=== PATIENT | male | born 1945 | race Caucasian/White ===

== ENCOUNTER → 2017-11-14 09:47 | Outpatient (CLI) | payer MEDICARE, OTHER, SELFPAY ==
[2017-11-14 11:46] LABS: PSA,Total- Diagnostic 1.43 ng/mL (0.0-4.0)
== END ==
LOC: OLS.ABSOLU 09:51 → LAB 10:01
PROVIDERS: Family Provider Family Medicine; PCP Family Medicine; Visit Provider Nurse Practitioner Adult Health
DX: N40.1 Benign prostatic hyperplasia with lower urinary tract symptoms (principal)
CPT/HCPCS: 36415; 84153

== ENCOUNTER → 2018-01-09 08:37 | Outpatient (CLI) | payer MEDICARE, OTHER, SELFPAY ==
[2018-01-09 12:19] LABS: Absolute Lymphocyte Count 2.22 X10^3/ul (0.83-4.51); Absolute Neutrophil Count 4.2 X10^3/uL (2.0-7.7); Basophil# 0.03 X10^3/uL; Basophil% 0.4 % (0-1); Eosinophil# 0.38 X10^3/uL; Hematocrit 45.7 % (40-54); Hemoglobin 15.3 g/dl (13.0-16.5); Lymphocyte # 2.22 X10^3/ul (4.0); Lymphocyte % 29.4 % (19-41); Mean Corp Hgb Conc 33.5 g/gl (32-36); Mean Corpuscular Hgb 30.9 pg (27.0-32.0); Mean Corpuscular Volume 92.3 fL (80-94); Mean Platelet Vol. 10.6 fl (6.2-12.0); Monocyte# 0.71 X10^3/uL; Monocyte% 9.4 % (0-10); Neutrophil # 4.21 X10^3/uL (2.7-7.7); Neutrophil % 55.7 % (47-70); Platelet Count 214 K/mm3 (150-450); RBC Distribution Width CV 13.5 % (11.6-14.6); RBC Distribution Width SD 44.8 fl (35.1-43.9); Red Blood Count 4.95 M/mm3 (4.6-6.2); White Blood Count 7.6 K/mm3 (4.4-11.0)
[2018-01-09 12:21] LABS: POSITIVE COUNT NO; POSITIVE DIFFERENTIAL NO; POSITIVE MORPHOLOGY NO
[2018-01-09 12:36] LABS: Microalbumin,Random Urine 25.1 mg/L (NO RANGE EST.)
[2018-01-09 12:41] LABS: ALB/GLOB Ratio 1.1 RATIO (0.9-2.4); AST(SGOT) 22 U/L (15-37); Alanine Aminotransfer ALT/SGPT 41 U/L (16-61); Albumin, Serum 3.8 g/dL (3.2-5.0); Alkaline Phosphatase 67 U/L (45-117); Anion Gap 6 (5-15); BUN 19 mg/dL (7-18); BUN/Creat Ratio 18.6 RATIO (10-20); Calcium,Total 9.5 mg/dL (8.5-10.1); Chloride 104 mmol/L (98-107); Cholesterol 140 mg/dL (200); Creatinine, Serum 1.02 mg/dL (0.70-1.30); EST Glomerular Filtration Rate 77 mL/min (>60); Est Glom Filt Rate - Afr Amer 93 mL/min (>60); Globulin 3.5 g/dL (2.2-4.2); Glucose 134 mg/dL (74-106); High Density Lipoprotein 32 mg/dL; Potassium 4.1 mmol/L (3.5-5.1); Protein, Total 7.3 g/dL (6.4-8.2); Sodium Level 140 mmol/L (136-145); Triglycerides 184 mg/dL; Very Low Density Lipoprotein 37 mg/dL (5-40)
== END ==
PROVIDERS: Family Provider Family Medicine; PCP Family Medicine; Visit Provider Family Medicine
DX: E11.9 Type 2 diabetes mellitus without complications (principal); E78.5 Hyperlipidemia, unspecified; I10 Essential (primary) hypertension
CPT/HCPCS: 36415; 80053; 80061; 82043; 82570; 84443; 85025

== ENCOUNTER → 2018-11-21 10:18 | Outpatient (CLI) | payer MEDICARE, OTHER, SELFPAY ==
[2015-10-10 11:11] VITALS: BMI 27.8
[2018-11-21 11:49] LABS: PSA,Total - Annual Screen 1.35 ng/mL (0.00-4.00)
== END ==
PROVIDERS: Family Provider Family Medicine; PCP Family Medicine; Referring Provider Nurse Practitioner Adult Health; Visit Provider Nurse Practitioner Adult Health
DX: Z12.5 Encounter for screening for malignant neoplasm of prostate (principal)
CPT/HCPCS: 36415; 84153; G0103

== ENCOUNTER → 2019-05-01 10:22 | Outpatient (CLI) | payer MEDICARE, OTHER, SELFPAY ==
[2015-10-10 11:11] VITALS: BMI 27.8
[2019-05-01 12:34] LABS: Absolute Lymphocyte Count 1.83 X10^3/uL (0.83-4.51); Absolute Neutrophil Count 4.1 X10^3/uL (2.0-7.7); Basophil# 0.04 X10^3/uL; Basophil% 0.6 % (0-1); Eosinophil# 0.23 X10^3/uL; Eosinophils% 3.4 % (0-5); Hematocrit 44.2 % (40-54); Lymphocyte # 1.83 X10^3/ul (4.0); Lymphocyte % 27.3 % (19-41); Mean Corp Hgb Conc 33.9 g/dL (32-36); Mean Corpuscular Hgb 30.9 pg (27.0-32.0); Mean Corpuscular Volume 91.1 fL (80-94); Mean Platelet Vol. 10.4 fl (6.2-12.0); Monocyte# 0.49 X10^3/uL; Monocyte% 7.3 % (0-10); NRBC Flagged by Analyzer 0 % (0-5); Neutrophil # 4.11 X10^3/uL (2.7-7.7); Neutrophil % 61.3 % (47-70); Platelet Count 200 K/mm3 (150-450); RBC Distribution Width CV 13.1 % (11.6-14.6); RBC Distribution Width SD 43.7 fl (35.1-43.9); Red Blood Count 4.85 M/mm3 (4.6-6.2); White Blood Count 6.7 K/mm3 (4.4-11.0)
[2019-05-01 12:47] LABS: Vitamin B12 633 pg/mL (211-911); Vitamin D,25 Hydroxy 37.4 ng/mL (29.95-100.01)
[2019-05-01 12:51] LABS: ALB/GLOB Ratio 0.9 RATIO (0.9-2.4); AST(SGOT) 18 U/L (15-37); Alanine Aminotransfer ALT/SGPT 29 U/L (16-61); Albumin, Serum 3.5 g/dL (3.2-5.0); Alkaline Phosphatase 71 U/L (45-117); Anion Gap 9 (5-15); BUN 13 mg/dL (7-18); BUN/Creat Ratio 13.4 RATIO (10-20); Calcium,Total 9.4 mg/dL (8.5-10.1); Chloride 105 mmol/L (98-107); Creatinine, Serum 0.97 mg/dL (0.70-1.30); EST Glomerular Filtration Rate 81 mL/min (>60); Est Glom Filt Rate - Afr Amer 98 mL/min (>60); Globulin 3.7 g/dL (2.2-4.2); Glucose 158 mg/dL (74-106); Potassium 3.7 mmol/L (3.5-5.1); Protein, Total 7.2 g/dL (6.4-8.2); Sodium Level 141 mmol/L (136-145); Thyroid Stim Hormone (TSH) 1.01 uIU/mL (0.358-3.74)
== END ==
PROVIDERS: Family Provider Family Medicine; PCP Family Medicine; Visit Provider Family Medicine
DX: E11.9 Type 2 diabetes mellitus without complications (principal); E78.5 Hyperlipidemia, unspecified; E55.9 Vitamin D deficiency, unspecified; R41.81 Age-related cognitive decline; R53.83 Other fatigue
CPT/HCPCS: 36415; 80053; 82306; 82607; 84443; 85025

== ENCOUNTER → 2019-12-10 09:53 | Outpatient (CLI) | payer MEDICARE, OTHER, SELFPAY ==
[2015-10-10 11:11] VITALS: BMI 27.8
[2019-12-10 12:16] LABS: PSA,Total - Annual Screen 1.55 ng/mL (0.00-4.00)
== END ==
PROVIDERS: PCP Family Medicine; Referring Provider Nurse Practitioner Adult Health; Visit Provider Nurse Practitioner Adult Health
DX: Z12.5 Encounter for screening for malignant neoplasm of prostate (principal)
CPT/HCPCS: 36415; 84153; G0103

== ENCOUNTER → 2020-10-14 09:04 | Outpatient (CLI) | payer MEDICARE, OTHER, SELFPAY ==
[2015-10-10 11:11] VITALS: BMI 27.8
[2020-10-14 12:51] LABS: Absolute Lymphocyte Count 2.02 X10^3/uL (0.83-4.51); Basophil# 0.04 X10^3/uL; Basophil% 0.6 % (0-1); Eosinophil# 0.41 X10^3/uL; Eosinophils% 5.7 % (0-5); Hematocrit 47.2 % (40-54); Hemoglobin 15.7 g/dL (13.0-16.5); Lymphocyte # 2.02 X10^3/ul (4.0); Lymphocyte % 28.1 % (19-41); Mean Corp Hgb Conc 33.3 g/dL (32-36); Mean Corpuscular Hgb 30.5 pg (27.0-32.0); Mean Corpuscular Volume 91.7 fL (80-94); Mean Platelet Vol. 10.8 fl (6.2-12.0); Monocyte# 0.66 X10^3/uL; Monocyte% 9.2 % (0-10); NRBC Flagged by Analyzer 0 % (0-5); Neutrophil # 4.04 X10^3/uL (2.7-7.7); Neutrophil % 56.1 % (47-70); Platelet Count 228 K/mm3 (150-450); RBC Distribution Width CV 12.8 % (11.6-14.6); Red Blood Count 5.15 M/mm3 (4.6-6.2); White Blood Count 7.2 K/mm3 (4.4-11.0)
[2020-10-14 13:08] LABS: Vitamin D,25 Hydroxy 38.7 ng/mL
[2020-10-14 13:21] LABS: ALB/GLOB Ratio 0.9 RATIO (0.9-2.4); AST(SGOT) 17 U/L (15-37); Alanine Aminotransfer ALT/SGPT 31 U/L (16-61); Albumin, Serum 3.6 g/dL (3.2-5.0); Alkaline Phosphatase 76 U/L (45-117); Anion Gap 8 (5-15); BUN 18 mg/dL (7-18); BUN/Creat Ratio 16.8 RATIO (10-20); Chloride 100 mmol/L (98-107); Cholesterol 146 mg/dL (200); Creatinine, Serum 1.07 mg/dL (0.70-1.30); EST Glomerular Filtration Rate 72 mL/min (>60); Est Glom Filt Rate - Afr Amer 87 mL/min (>60); Globulin 3.9 g/dL (2.2-4.2); Glucose 177 mg/dL (74-106); High Density Lipoprotein 35 mg/dL; Protein, Total 7.5 g/dL (6.4-8.2); Sodium Level 137 mmol/L (136-145); Thyroid Stim Hormone (TSH) 1.71 uIU/mL (0.358-3.74); Triglycerides 216 mg/dL; Very Low Density Lipoprotein 43 mg/dL (5-40)
== END ==
PROVIDERS: PCP Family Medicine; Visit Provider Family Medicine
DX: E11.9 Type 2 diabetes mellitus without complications (principal); I10 Essential (primary) hypertension; E78.5 Hyperlipidemia, unspecified; E55.9 Vitamin D deficiency, unspecified
CPT/HCPCS: 36415; 80053; 80061; 82306; 84443; 85025

== ENCOUNTER → 2020-12-18 13:25 | Outpatient (CLI) | payer MEDICARE, OTHER, SELFPAY ==
[2015-10-10 11:11] VITALS: BMI 27.8
== END ==
LOC: LABSPEC 13:27 → LAB 12-19 05:53
PROVIDERS: PCP Family Medicine; Visit Provider Nurse Practitioner Adult Health
DX: Z12.5 Encounter for screening for malignant neoplasm of prostate (principal)
CPT/HCPCS: 36415; 84153; G0103

== ENCOUNTER → 2021-09-07 12:15 | Outpatient (CLI) | payer MEDICARE, OTHER, SELFPAY ==
--- NOTE | 2021-09-07 12:17 | RAD_ITS ---
STUDY: X-RAY - ORBITS REASON FOR EXAM: Male, 75 years old. History of metal shavings in eyes TECHNIQUE: 2 view(s) of the orbits were obtained. COMPARISON: None. FINDINGS: Normal bilateral orbits without a metallic orbital foreign body. Normal visualized facial bones. Normal paranasal sinuses. The soft tissue structures are unremarkable. RAD/Orbits for Foreign Body IMPRESSION: No demonstrated metallic orbital foreign body. The patient is cleared for an MRI examination. Electronically Signed: Jose Ramon Bello MD at 14:48 EST , Service support ,
== END ==
PROVIDERS: PCP Family Medicine; Referring Provider Psychiatry & Neurology Neurology; Visit Provider Psychiatry & Neurology Neurology
DX: S00.259A Superficial foreign body of unspecified eyelid and periocular area, initial encounter (principal)
CPT/HCPCS: 70030

== ENCOUNTER → 2021-09-10 06:29 | Outpatient (CLI) | payer MEDICARE, OTHER, SELFPAY ==
--- NOTE | 2021-09-10 06:31 | MRI_ITS ---
HISTORY: [facility]CI, Parkinson Disease. TECHNIQUE: Multiplanar and multisequence MR images of the brain were obtained without and with IV gadolinium. IV Contrast dosage and agent: 19 mL Dotarem. # of images incl. paperwork: 351. COMPARISON: None. FINDINGS: BRAIN PARENCHYMA: Increased T2 FLAIR signal in the periventricular white matter. No abnormal focus of restricted diffusion. No enhancing lesion in the brain parenchyma. INTRACRANIAL HEMORRHAGE: No acute intracranial hemorrhage. CSF SPACES: Generalized volume loss. No midline shift or other significant mass effect. No extra-axial fluid collection. VESSELS: Major intracranial flow voids maintained. ORBITS: Symmetric in appearance. PARANASAL SINUSES: 1.4 x 3.2 cm heterogeneous isointense oval mass in the left nasal cavity involving the middle turbinate with avid and heterogeneous enhancement. Large and heterogeneous air-fluid levels in the left frontal sinus and ethmoid air cells. Mucosal thickening in the left nasal cavity. Mucous retention cyst in the right frontal sinus. Fluid in the right ethmoid air cells. MRI/Brain W/WO Contrast IMPRESSION: 3.2 cm enhancing mass in the left nasal cavity, neoplasm versus complex polyp. Frontoethmoid sinusitis. Mild chronic involutional and white matter changes. at 0936 Reported and signed by: Juliana Fraser MD Electronically Signed: Juliana Fraser MD at 9:35 EST Tel , Service support ,
[2021-09-10 07:10] LABS: CREATININE FINGERSTICK 0.8 mg/dL (0.70-1.30); EGFR FINGERSTICK > 60.0000 mL/min (>60)
[2021-09-10 08:16] LABS: Vitamin B12 540 pg/mL (211-911)
[2021-09-16 17:07] LABS: Free Kappa Light Chains 19.7 mg/L (3.3-19.4); Free Lambda Light Chains 19.7 mg/L (5.7-26.3)
[2021-09-16 22:33] LABS: Vitamin B1, Thiamine 172.7 nmol/L (66.5-200.0)
== END ==
PROVIDERS: PCP Family Medicine; Referring Provider Psychiatry & Neurology Neurology; Visit Provider Psychiatry & Neurology Neurology
DX: G62.9 Polyneuropathy, unspecified (principal); G31.84 Mild cognitive impairment of uncertain or unknown etiology; G20 Parkinson's disease
CPT/HCPCS: 36415; 70553; 82607; 82746; 83883; 84425; A9575

== ENCOUNTER → 2022-02-12 | Outpatient (CLI) | payer MEDICARE, OTHER, SELFPAY ==
--- NOTE | 2022-02-12 09:09 | EKG12_ITS ---
Test Reason : PRE OP Blood Pressure : / mmHG Vent. Rate : 063 BPM Atrial Rate : 063 BPM P-R Int : 214 ms QRS Dur : 086 ms QT Int : 422 ms P-R-T Axes : 074 -34 -14 degrees QTc Int : 431 ms Sinus rhythm with sinus arrhythmia with 1st degree A-V block with occasional Premature ventricular co mplexes Left axis deviation Nonspecific T wave abnormality Abnormal ECG Confirmed by CECILIA RICHTER, JOSE ([id number]), editorial specialist MEÑO TONG ([id number]) on 02/15/2022 9:59:37 AM Referred By: GER Confirmed By:BRIANA BROOKS MD
== END | disposition home or self-care (01) ==
LOC: PSN 09:06
PROVIDERS: PCP Family Medicine; Visit Provider Otolaryngology
DX: Z01.810 Encounter for preprocedural cardiovascular examination (principal); I49.8 Other specified cardiac arrhythmias; I44.0 Atrioventricular block, first degree; R94.31 Abnormal electrocardiogram [ECG] [EKG]
CPT/HCPCS: 93005

== ENCOUNTER → 2022-02-15 | Outpatient (CLI) | payer MEDICARE, OTHER, SELFPAY ==
[2022-02-15 09:44] LABS: Anion Gap 7 (5-15); BUN 17 mg/dL (7-18); BUN/Creat Ratio 15.3 RATIO (10-20); Calcium,Total 9.6 mg/dL (8.5-10.1); Chloride 102 mmol/L (98-107); Creatinine, Serum 1.11 mg/dL (0.70-1.30); EST Glomerular Filtration Rate 69 mL/min (>60); Est Glom Filt Rate - Afr Amer 83 mL/min (>60); Glucose 226 mg/dL (74-106); Potassium 3.7 mmol/L (3.5-5.1); Sodium Level 137 mmol/L (136-145)
== END | disposition home or self-care (01) ==
LOC: LAB 08:37
PROVIDERS: PCP Family Medicine; Referring Provider Otolaryngology; Visit Provider Otolaryngology
DX: J33.0 Polyp of nasal cavity (principal)
CPT/HCPCS: 36415; 80048

== ENCOUNTER → 2022-06-08 | Outpatient (CLI) | payer MEDICARE, OTHER, SELFPAY ==
[2022-06-08 11:32] LABS: Hematocrit 45.4 % (40-54); Hemoglobin 14.9 g/dL (13.0-16.5); Mean Corp Hgb Conc 32.8 g/dL (32-36); Mean Corpuscular Volume 91.3 fL (80-94); Platelet Count 222 K/mm3 (150-450); RBC Distribution Width CV 13.9 % (11.6-14.6); RBC Distribution Width SD 46.4 fl (35.1-43.9); Red Blood Count 4.97 M/mm3 (4.6-6.2); White Blood Count 7.6 K/mm3 (4.4-11.0)
[2022-06-08 12:08] LABS: ALB/GLOB Ratio 0.8 RATIO (0.9-2.4); AST(SGOT) 18 U/L (15-37); Alanine Aminotransfer ALT/SGPT 27 U/L (16-61); Albumin, Serum 3.6 g/dL (3.2-5.0); Alkaline Phosphatase 86 U/L (45-117); Anion Gap 9 (5-15); BUN 18 mg/dL (7-18); BUN/Creat Ratio 19.6 RATIO (10-20); Calcium,Total 9.9 mg/dL (8.5-10.1); Chloride 104 mmol/L (98-107); Creatinine, Serum 0.92 mg/dL (0.70-1.30); EST Glomerular Filtration Rate 85 mL/min (>60); Est Glom Filt Rate - Afr Amer 103 mL/min (>60); Globulin 4.4 g/dL (2.2-4.2); Glucose 186 mg/dL (74-106); Potassium 3.9 mmol/L (3.5-5.1); Sodium Level 139 mmol/L (136-145); Thyroid Stim Hormone (TSH) 1.45 uIU/mL (0.358-3.74)
[2022-06-10 18:07] LABS: Albumin 3.7 g/dL (2.9-4.4); Alpha-1-Globulins 0.3 g/dL (0.0-0.4); Gamma Globulin 1.1 g/dL (0.4-1.8); Immunoglobulin A 304 mg/dL (61-437); Immunoglobulin G 1081 mg/dL (603-1613); Immunoglobulin M 27 mg/dL (15-143); PROEL- TOTAL PROTEIN 7.4 g/dL (6.0-8.5)
== END | disposition home or self-care (01) ==
LOC: LAB 10:40
PROVIDERS: PCP Family Medicine; Referring Provider Psychiatry & Neurology Neurology; Visit Provider Psychiatry & Neurology Neurology
DX: G20 Parkinson's disease (principal); G62.9 Polyneuropathy, unspecified; E78.5 Hyperlipidemia, unspecified
CPT/HCPCS: 36415; 80053; 82784; 84165; 84443; 85027; 86334; 86335

== ENCOUNTER → 2022-06-29 | Outpatient (CLI) | payer MEDICARE, OTHER, SELFPAY | END | disposition home or self-care (01) | LOC: LAB 10:45 | PROVIDERS: PCP Family Medicine; Visit Provider Registered Nurse | DX: Z12.5 Encounter for screening for malignant neoplasm of prostate (principal) | CPT/HCPCS: 36415; 84153; G0103 ==

== ENCOUNTER 2023-01-12 15:00 | Outpatient (RCR) | payer MEDICARE, OTHER, SELFPAY ==
--- NOTE | 2022-12-14 13:53 | HP.PTEVAL ---
Patient's Visit Information KAYLEN BAJWA is a 77 year old M referred to Physical Therapy by Dr. Ham Arellano MD with a diagnosis of PD. Date of Evaluation: 12/14/22 Physical Therapist: YANETH Lerner - Visit Plan Frequency: 2x /Week Duration: 2 Months Plan: 2X/ week for 4-8 weeks for dual tasking, functional balance with and without head movements, postural exercises with HEP - Subjective Pt was diagnosed with PD almost a year ago. He is struggling with short foot step and shuffling/not picking up his feet. He is having a little bit of memory trouble. He still works... 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 He is sleeping 12 hours with no problems. He has had falls...he tends to fall BW. He has to back up against the bed to get dressed. He has fallen 4X in the last year and had no idea he was going down. He makes sure that there is something landing on. He started on some new pills a week ago and he is feeling better...they make him feel like there is nothing wrong with him. Dr said to go to PT due to his walking and falling over backwards. He still drives....he has to be careful cause he wants to look around. His drives most of the time. Steps: he has a railing and to the basement he has a full flight of stairs. He used to get dizzy but has some pills for that and has not had it since then. He has trouble getting out of low cars. - Objective Gait: Shuffles. Takes shorter strides unless reminded to take bigger steps. Posture: slight trunk flexion. Stairs: up and down recip with handrail. LE MMT. R hip flex 12.7 and L 12.6. R knee ext 24 and L 26.3. R knee flex 11.4 and L 9.7. Standing heel and toe raises..he is able to do so. [place] arm and leg in standing X 2 and then had to re group twice but was able to do X 10 on each side but too a lot of concentration. FGA: 21. TU.60. Sitting and turning head R and L X 7 times in each direction and he gets a little dizzy but recovers quickly. Sit to stand: He is able to get up without using his UE's. - Balance/Special Test Scores Functional Gait Assessment Score: 21 % Disability: 30.0000 Lower Extremity Functional Score: 32 - Goals Goal 1:: I HEP Goal Time Frame: 6-8 Weeks Goal 2:: Increase FGA score and decrease fall risk (score at time of eval 21) Goal Time Frame: 6-8 Weeks Goal 3:: Be able to walk with head turns 160 feet X 2 without any dizziness Goal Time Frame: 6-8 Weeks Goal 4:: Be able to do X 20 FW opp arm and leg in standing and BW without messing up or LOB Goal Time Frame: 6-8 Weeks Goal 5:: Increase stride length with gait and not shuffle on the way back to the treatment rooms Goal Time Frame: 6-8 Weeks - Rehabilitation Potential Rehabilitation Potential: Good - Anticipated Interventions Patient/Client Instruction: Educate patient on: Condition, Plan of Care For the Purpose of:: To improve muscle performance and motor function, To improve ability to perform ADL's, To increase tolerance to activity/condition/position, To improve performance and independence with ADL's, To decrease level of supervision to perform tasks, To improve ability of physical actions for home/community/work/leisure, To improve gait and locomotor functions, To improve health of tissue, To increase flexibility/ROM, To improve endurance, To improve balance, To improve safety with gait Therapeutic Exercise to Include: Strength training, Endurance training, Balance training, Body mechanics, Postural training, Gait and locomotor training For the Purpose of:: To decrease pain, To improve nutrient delivery to tissue, To improve muscle performance and motor function, To improve ability to perform ADL's, To increase tolerance to activity/condition/position, To improve performance and independence with ADL's, To decrease level of supervision to perform tasks, To improve ability of physical actions for home/community/work/leisure, To improve gait and locomotor functions, To improve health of tissue, To increase flexibility/ROM, To improve endurance, To improve balance, To improve safety with gait Functional Training to Include: Gait training For the Purpose of:: To improve gait and locomotor functions, To improve safety with gait Manual Therapy Techniques to Include: Passive ROM For the Purpose of:: To increase ROM, To improve nutrient delivery to tissue, To improve health of tissue, To decrease soft tissue restriction, To increase flexibility/ROM Thank you for the opportunity to evaluate your patient. For Medicare and Medicare HMO plans, please review the plan of care and approve it. It will need to be FAXED BACK to us at [phone] for Medicare purposes. For Medicare only, by signing this I certify the plan of care. Please let me know if there are questions or concerns regarding this plan of care. Physician Signature: Date:
--- NOTE | 2023-01-12 15:27 | HP.PTDCSUM ---
It has been my pleasure to treat KAYLEN BAJWA referred by Dr. Ham Arellano MD, with the diagnosis of PD for a total of 8 visit(s). Discharge Date: 01/12/23 Please see the following information for a summary of their discharge status. Subjective: Pt thinks that he is doing much better than when he came here. He is doing all his exercises at home and feels good about it. He will continue to walk on the machines at home. He is now hardly scuffing his feet. He is holding his shoulders up much straighter when he walks. % Improvement: 95 Objective/Function: FGA 23. walk with horizontal head turns: no LOB or veering. FW opp arm and leg X 20: no messing up with good balance Goal 1:: I HEP Goal Progress: Goal Met Goal 2:: Increase FGA score and decrease fall risk (score at time of eval 21) Goal Progress: Goal Met Goal 3:: Be able to walk with head turns 160 feet X 2 without any dizziness Goal Progress: Goal Met Goal 4:: Be able to do X 20 FW opp arm and leg in standing and BW without messing up or LOB Goal Progress: Goal Met Goal 5:: Increase stride length with gait and not shuffle on the way back to the treatment rooms Goal Progress: Goal Met Plan: DC PT to HEP Discharge Comments: DC PT to HEP If there are questions or concerns regarding this patient's physical therapy, please feel free to call me at [phone]. Thank you for the referral of this patient. Sincerely, Parisa Chopra, MPT Balance/Gait/Functional tests - Balance/Special Test Scores Functional Gait Assessment Score: 23 % Disability: 23.3400 Lower Extremity Functional Score: 63
== END 2023-01-12 19:00 | disposition home or self-care (01) ==
LOC: PT 15:00
PROVIDERS: Referring Provider Psychiatry & Neurology Neurology; Visit Provider Psychiatry & Neurology Neurology
DX: G20 Parkinson's disease (principal)
CPT/HCPCS: 97110; 97161

== ENCOUNTER → 2023-05-06 | Outpatient (CLI) | payer MEDICARE, OTHER, SELFPAY ==
[2023-05-06 12:14] LABS: Absolute Lymphocyte Count 1.63 X10^3/uL (0.83-4.51); Absolute Neutrophil Count 2.4 X10^3/uL (2.0-7.7); Basophil# 0.03 X10^3/uL; Basophil% 0.6 % (0-1); Eosinophil# 0.17 X10^3/uL; Eosinophils% 3.5 % (0-5); Hematocrit 42.8 % (40-54); Hemoglobin 14.7 g/dL (13.0-16.5); Lymphocyte # 1.63 X10^3/ul (0.83-4.51); Lymphocyte % 33.9 % (19-41); Mean Corp Hgb Conc 34.3 g/dL (32-36); Mean Corpuscular Hgb 31.1 pg (27.0-32.0); Mean Corpuscular Volume 90.7 fL (80-94); Mean Platelet Vol. 10.2 fl (6.2-12.0); Monocyte% 12.5 % (0-10); NRBC Flagged by Analyzer 0 % (0-5); Neutrophil # 2.35 X10^3/uL (2.7-7.7); Neutrophil % 48.9 % (47-70); Platelet Count 180 K/mm3 (150-450); RBC Distribution Width CV 13.9 % (11.6-14.6); RBC Distribution Width SD 46.3 fl (35.1-43.9); Red Blood Count 4.72 M/mm3 (4.6-6.2); White Blood Count 4.8 K/mm3 (4.4-11.0)
[2023-05-06 12:40] LABS: Vitamin D,25 Hydroxy 83.3 ng/mL
[2023-05-06 12:46] LABS: AST(SGOT) 19 U/L (15-37); Alanine Aminotransfer ALT/SGPT 32 U/L (16-61); Albumin, Serum 3.5 g/dL (3.2-5.0); Alkaline Phosphatase 72 U/L (45-117); Anion Gap 7 (5-15); BUN 13 mg/dL (7-18); Calcium,Total 9.8 mg/dL (8.5-10.1); Chloride 105 mmol/L (98-107); Cholesterol 148 mg/dL (200); Creatinine, Serum 0.87 mg/dL (0.70-1.30); EST Glomerular Filtration Rate 91 mL/min (>60); Est Glom Filt Rate - Afr Amer 110 mL/min (>60); Globulin 3.5 g/dL (2.2-4.2); Glucose 189 mg/dL (74-106); High Density Lipoprotein 32 mg/dL; Potassium 3.9 mmol/L (3.5-5.1); Sodium Level 136 mmol/L (136-145); Triglycerides 164 mg/dL; Very Low Density Lipoprotein 33 mg/dL (5-40)
[2023-05-06 13:12] LABS: Microalbumin:Creatinine Ratio 170.4 mg/g CRE (<30 mg/g CRE)
== END | disposition home or self-care (01) ==
LOC: BFHLAB 10:14
PROVIDERS: PCP Nurse Practitioner Family; Referring Provider Nurse Practitioner Family; Visit Provider Nurse Practitioner Family
DX: E11.9 Type 2 diabetes mellitus without complications (principal); I10 Essential (primary) hypertension; E55.9 Vitamin D deficiency, unspecified; E78.5 Hyperlipidemia, unspecified
CPT/HCPCS: 36415; 80053; 80061; 82043; 82306; 82570; 85025

== ENCOUNTER 2024-03-22 14:00 | Outpatient (RCR) | payer MEDICARE, OTHER, SELFPAY ==
--- NOTE | 2024-02-22 10:03 | HP.PTEVAL ---
Patient's Visit Information Visit Information Visit Information: KAYLEN BAJWA is a 78 year old M referred to Physical Therapy by NANCI Dale with a diagnosis of LOW BACK PAIN. Date of Evaluation: 02/22/24 Physical Therapist: Domenic Sanchez, PT, Cert MDT, OCS Visit Plan Frequency: 2x /Week Duration: 4 Weeks Plan: PT INTERVENTIONS DLS ,BLE STRENGTHENING( HIPS) ,POSTURAL EX'S ,LE FLEXABILITY AND FUNCTIONAL STRENGTHENING Subjective Subjective: This 78 y/o male presents to physical therapy with lumbar pain. Patient has had lumbar pain 30 years and had lumbar laminectomy at that time. Patient pain has worse past years. Seen DR recommended PT and x-rays . Patient pain located symmetrical lumbar. Described as ache and occasional sharp pain. DR prescribed no medication. Aggravating factors standing and walking. Alleviating factors sitting resting.Denies paresthesia/tingling. Bowel/bladder -. Coughing/sneezing-. Sleeping good. 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 Patient has Parkinson's . Patient goals decrease pain. Patient condition affects QOL and function. SOCIAL: VOCATION: Own business Pain Bilateral Back: Pain Intensity (Out of 10): 6 Pain Intensity Range: 10 Objective Objective: POSTURE: mild forward posture GAIT: slow mild forward posture increase FREDDIE reciprocal pattern decrease step length NEURO: denies paresthesia/tingling ,reflexes L3-4,L4-5 ,L5-S 1 1/3 FLEXABILITY: hamstrings mod/severe loss MMT:( peak force) quads right 14.8 ,left 15.2 ,hamstrings right 16.2 ,left 15.2, hip flexion right 17.2 ,left 16.2 LUMBAR ROM : flexion mod loss ,extension mod/severe loss ,side glides mod loss Special Tests L/S Slump test left side: Negative L/S Slump test right side: Negative L/S Left Straight Leg Raise: Negative L/S Right Straight Leg Raise: Negative Balance/Special Test Scores Oswestry Low Back Score: 18 Goals Goal 1:: I with HEP for lumbar Goal Time Frame: 4-6 Weeks Goal 2:: Patient to demonstrated 50 % improvement with less pain and improved function Goal Time Frame: 4-6 Weeks Goal 3:: Patient to improve back oswestry score 5 points to improve QOL and function Goal Time Frame: 4-6 Weeks Goal 4:: Patient to improve lumbar ROM for function of recovery for job demands Goal Time Frame: 4-6 Weeks Goal 5:: Patient to improve back oswestry score by 5 points or > to improve QOL and function. Goal Time Frame: 4-6 Weeks Rehabilitation Potential Physical Therapy Diagnosis: This patient has lumbar pain and weakness in legs and tight hamstring and h/o lumbar surgery with pain decrease lumbar ROM ,weakness in hips impairs standing affects ADL's and job demands thus benefit from skilled PT Rehabilitation Potential: Good Anticipated Interventions Patient/Client Instruction: Educate patient on: Condition and Plan of Care For the Purpose of:: To decrease pain, To increase ROM, To improve muscle performance and motor function, To improve ability to perform ADL's, To increase tolerance to activity/condition/position, To improve ability of physical actions for home/community/work/leisure, To improve gait and locomotor functions, To improve health of tissue, To decrease soft tissue restriction, To increase flexibility/ROM, To reduce risk of recurrence and To improve tolerance to ADL's Therapeutic Exercise to Include: Strength training, Endurance training, Body mechanics, Postural training, Flexibilty training and Dynamic Lumbar Stabilization For the Purpose of:: To decrease pain, To increase ROM, To improve muscle performance and motor function, To improve ability to perform ADL's, To improve ability of physical actions for home/community/work/leisure, To improve health of tissue, To decrease soft tissue restriction, To increase flexibility/ROM, To improve endurance and To reduce risk of recurrence Text: Thank you for the opportunity to evaluate your patient. For Medicare and Medicare HMO plans, please review the plan of care and approve it. It will need to be FAXED BACK to us at [phone] for Medicare purposes. For Medicare only, by signing this I certify the plan of care. Please let me know if there are questions or concerns regarding this plan of care. Physician Signature: Date:
--- NOTE | 2024-03-22 14:18 | HP.PTDCSUM ---
Discharge Summary D/C summary: It has been my pleasure to treat KAYLEN BAJWA referred by NANCI Dale, with the diagnosis of LOW BACK PAIN for a total of 9 visit(s). Discharge Date: 03/22/24 Please see the following information for a summary of their discharge status. Subjective Subjective: Doing well Pain Bilateral Back: Pain Intensity (Out of 10): 0 Overall Improvement % Improvement: 100 Objective Objective/Function: GAIT: slow mild forward posture reciprocal pattern NEURO: denies paresthesia/tingling ,reflexes L3-4,L4-5 ,L5-S 1 09/28 FLEXABILITY: hamstrings mod/severe loss MMT:( peak force) quads right 43.8 ,left 42.7 ,hamstrings right 40.2 ,left 38.3, hip flexion right 38.8 ,left 37.7 LUMBAR ROM : flexion mod loss ,extension mod loss ,side loss mod Goals Goal 1:: I with HEP for lumbar Goal Progress: Goal Met Goal 2:: Patient to demonstrated 50 % improvement with less pain and improved function Goal Progress: Goal Met Goal 3:: Patient to improve back oswestry score 5 points to improve QOL and function Goal Progress: Goal Met Goal 4:: Patient to improve lumbar ROM for function of recovery for job demands Goal Progress: Goal Met Goal 5:: Patient to improve back oswestry score by 5 points or > to improve QOL and function. Goal Progress: Goal Met Plan Plan: D/C D/C Information d/c sentence: If there are questions or concerns regarding this patient's physical therapy, please feel free to call me at [phone]. Thank you for the referral of this patient. Sincerely, Domenic Sanchez, PT, Cert MDT, OCS Balance/Gait/Functional tests Balance/Special Test Scores Oswestry Low Back Score: 0 Improvement % Improvement: 100
== END 2024-03-22 14:47 | disposition home or self-care (01) ==
LOC: PT 14:00
PROVIDERS: PCP Nurse Practitioner Family; Referring Provider Nurse Practitioner Family; Visit Provider Nurse Practitioner Family
DX: M54.50 Low back pain, unspecified (principal)
CPT/HCPCS: 97110; 97113; 97162; 97530

== ENCOUNTER → 2024-04-30 | Outpatient (CLI) | payer MEDICARE, OTHER, SELFPAY ==
[2024-04-30 16:55] LABS: PSA,Total - Annual Screen 1.65 ng/mL (0.00-4.00)
== END | disposition home or self-care (01) ==
LOC: LAB 15:29
PROVIDERS: PCP Nurse Practitioner Family; Referring Provider Nurse Practitioner; Visit Provider Nurse Practitioner
DX: Z12.5 Encounter for screening for malignant neoplasm of prostate (principal)
CPT/HCPCS: 36415; 84153; G0103

== ENCOUNTER 2025-01-30 12:34 | Observation (INO) | payer MEDICARE, OTHER, SELFPAY ==
[2025-01-30] VITALS (13 sets, daily range): BP systolic 132–180; BP diastolic 79–121; PULSE 75–83; RESP 12–18; TEMP 36.4–37; O2SAT 94–98; BMI 26.2; BMI 28.3; BMI 26.3
--- NOTE | 2025-01-30 12:41 | EKG12_ITS ---
Test Reason : STROKE ALERT Blood Pressure : */* mmHG Vent. Rate : 81 BPM Atrial Rate : 81 BPM P-R Int : 210 ms QRS Dur : 90 ms QT Int : 370 ms P-R-T Axes : 46 -41 4 degrees QTcB Int : 429 ms Sinus rhythm with 1st degree A-V block Left axis deviation Nonspecific T wave abnormality Abnormal ECG Confirmed by Surya Zee ([id number]), pictures editor MARS BOYD ([id number]) on 02/01/2025 12:22:56 PM Referred By: Confirmed By: Surya Zee
--- NOTE | 2025-01-30 12:42 | CT_ITS ---
PROCEDURE: STROKE BRAIN/HEAD WITHOUT CONT, 01/30/2025 REASON FOR EXAM: NEURO DEFICIT, ACUTE, STROKE SUSPECTED COMPARISON: 09/10/2021 ; note that images only are available for review, the report is not available at the time of the dictation. TECHNIQUE: CT head was performed without IV contrast. Multiplanar reformats were generated. RADIATION DOSE SUMMARY: CTDlvol: 44.99 mGy DLP: 897.35 mGycm One or more dose reduction techniques were used (e.g., Automated exposure control, adjustment of the mA and/or kV according to patient size, use of iterative reconstruction technique). FINDINGS: Cerebrum: No visible acute hemorrhage, definite acute territorial infarct, or visible mass. Mild/moderate diffuse cerebral volume loss. Minimal supratentorial white matter hypodensity, nonspecific but compatible with chronic microvascular ischemia. Cerebellum/brainstem: Unremarkable. Note slight limitation due to beam hardening artifact. Ventricles/extra-axial spaces: Age-appropriate appearance. Paranasal sinuses/mastoid air cells: Opacification of a single RIGHT ethmoid air cells. Mucous retention cyst or polyp in the RIGHT frontal sinus. Mild mucosal thickening in the inferior LEFT maxillary sinus.. Scalp/calvarium: Unremarkable. Other: Intracranial atherosclerosis.. CT/STROKE Brain/Head without Cont IMPRESSION: 1. No visible acute intracranial findings. If there is persistent concern for a n acute intracranial process, consider MRI. 2. Mild paranasal sinus disease, improved from 09/10/2021. 3. Additional description as above. Red Alert: #1 above The critical information above was relayed directly by me by telephone to Kimmie Johnson on 01/30/2025 at 11:11 am [facility]. Reading Location: [id number]
--- NOTE | 2025-01-30 12:45 | CT_ITS ---
PROCEDURE: STROKE CTA HEAD AND NECK W/CON 01/30/2025 REASON FOR EXAM: NEURO DEFICIT, ACUTE, STROKE SUSPECTED TECHNIQUE: CTA head and neck was performed with IV contrast. Multiplanar reformats as well as MIP and 3D reconstructions were generated. IV contrast: Isovue 370 VOLUME: 100mL RADIATION DOSE SUMMARY: CTDlvol: 15.69+ 10.98 mGy DLP: 480.98 mGycm One or more dose reduction techniques were used (e.g., Automated exposure control, adjustment of the mA and/or kV according to patient size, use of iterative reconstruction technique). COMPARISON: CT of same date FINDINGS: Note the exam is optimized for evaluation of the head and major cervical/intracranial arterial vasculature rather than the remaining soft tissues. CTA NECK: Aortic Arch: Atherosclerosis.. Brachiocephalic and subclavians: Nonobstructing atherosclerosis.. RIGHT Carotid: Right CCA: Nonobstructing atherosclerosis. Right ICA: Advanced nonobstructing atherosclerosis in the bulb. 30% stenosis proximally. Right ECA: 30% stenosis proximally. LEFT Carotid: Left CCA: Nonobstructing atherosclerosis.. Left ICA: Advanced nonobstructing atherosclerosis in the bulb. 10% stenosis proximally Left ECA: 40% stenosis proximally Vertebrals: Codominant. Arise from the subclavians. Both vertebrals form the basilar. RIGHT Vertebral: 20% stenosis proximally. LEFT Vertebral: Difficult to evaluate the origin due to small size, favor roughly 50% stenosis.. Additional 50% stenosis along the midportion at the C5 level. 25% stenosis along the distal V4 segment. CTA HEAD: Slight limitation related to venous contamination. Anterior circulation: Heavy atherosclerosis in the carotid siphons with 25% stenosis on the LEFT and 20% stenosis on the RIGHT. 40-50% stenosis LEFT A2. Otherwise mild multifocal stenoses of M2 and A2 segments bilaterally.. Posterior circulation: 60% stenosis LEFT P2. Venous structures: Grossly unremarkable within limits of nondedicated technique. Other: None demineralization. Multilevel spondylosis. Patient is edentulous. CT/STROKE CTA Head AND Neck W/Con IMPRESSION: 1. No large vessel occlusion identified. 2. Multifocal stenoses as detailed, up to 60% along the LEFT P2. 3. Additional description as above. Reading Location: [facility]
--- NOTE | 2025-01-30 12:55 | ED.RN ---
called [facility] to inform pt in back in room. at bedside.
[2025-01-30 13:02] LABS: Bedside Glucose 243 mg/dL (74-106)
[2025-01-30 13:07] LABS: Absolute Lymphocyte Count 1.15 X10^3/uL (0.83-4.51); Absolute Neutrophil Count 2.9 X10^3/uL (2.0-7.7); Basophil# 0.04 X10^3/uL; Basophil% 0.8 % (0-1); Hematocrit 39.6 % (40-54); Hemoglobin 13.7 g/dL (13.0-16.5); Lymphocyte # 1.15 X10^3/ul (0.83-4.51); Lymphocyte % 23.6 % (19-41); Mean Corp Hgb Conc 34.6 g/dL (32-36); Mean Corpuscular Hgb 31.1 pg (27.0-32.0); Mean Corpuscular Volume 89.8 fL (80-94); Mean Platelet Vol. 9.6 fl (6.2-12.0); Monocyte# 0.65 X10^3/uL; Monocyte% 13.3 % (0-10); NRBC Flagged by Analyzer 0 % (0-5); Neutrophil # 2.92 X10^3/uL (2.7-7.7); Neutrophil % 59.9 % (47-70); Platelet Count 151 K/mm3 (150-450); RBC Distribution Width CV 13.2 % (11.6-14.6); RBC Distribution Width SD 43.2 fl (35.1-43.9); Red Blood Count 4.41 M/mm3 (4.6-6.2); White Blood Count 4.9 K/mm3 (4.4-11.0)
--- NOTE | 2025-01-30 13:10 | RAD_ITS ---
PROCEDURE: CHEST 1 VIEW, 01/30/2025 REASON FOR EXAM: NEURO DEFICIT, ACUTE, STROKE SUSPECTED TECHNIQUE: PA and lateral views of the chest were obtained. COMPARISON: None FINDINGS: Heart: Borderline mild cardiomegaly may be exacerbated by portable technique. Mediastinum: Atherosclerosis. Widened RIGHT paratracheal stripe probably related to mediastinal lipomatosis on correlation with concurrent same day CTA. Lungs/pleura: Slightly elevated RIGHT hemidiaphragm with vascular crowding. No convincing focal consolidation. No pleural effusion or visible pneumothorax. Bones: Demineralization. Calcific tendinopathy versus calcified loose body within the LEFT shoulder.. Lines and support devices: None. Other: None. RAD/Chest 1 View IMPRESSION: 1. No visible acute cardiopulmonary findings 2. Additional description as above. Reading Location: [id number]
--- NOTE | 2025-01-30 13:20 | ED.RN ---
reports having numbness this morning and hand feels swelled up. denies symptoms now.
[2025-01-30 13:28] LABS: International Normalized Ratio 1.1; Partial Thromboplast Time 32.3 Seconds (24.1-36.2); Prothrombin Time (Protime)PT. 14.3 SECONDS (11.7-14.9)
--- NOTE | 2025-01-30 13:48 | EDS_ITS ---
HPI History of Present Illness Chief Complaint: Stroke Alert Informant: patient and spouse/S.O. Narrative Narrative: Patient is 79-year-old male with history of hypertension, dyslipidemia, neuropathy and Parkinson's disease as well as diabetes mellitus presenting from home with right arm weakness and feeling off. [facility] Medical History Fatigue Hemiballism Parkinsonian features Depression Vitamin D deficiency Screening for malignant neoplasm of colon GERD (gastroesophageal reflux disease) Essential hypertension Impotence Hyperlipidemia Type 2 diabetes mellitus Home Medications ?Medication ?Instructions ?Recorded ?Last Taken ?Type aspirin 81 mg chewable tablet 81 mg PO DAILY@0800 02/0 06/10 Unknown History atorvastatin 80 mg tablet 80 mg PO QHS 11/04/14 Unknow n History metformin 500 mg tablet 1,000 mg PO BIDCM 11/04/14 U nknown History omega 3-dha 60 mg-epa 90 mg-fish 1,000 mg PO DAILY 06/10 Unknown History oil 500 mg capsule, delayed release (Fish Oil) potassium chloride 10 mEq 20 meq PO DAILY 11/04/14 Unk nown History tablet,extended release(part/cryst) (Klor-Con M) multivitamin with folic acid 400 1 tab PO DAILY Unknown History mcg tablet (Thera) cholecalciferol (vitamin D3) 125 125 mcg PO DAILY 08/26 12/14 Unknown History mcg (5,000 unit) capsule glimepiride 1 mg tablet 1 mg PO BID 09/07/21 Unknown History loratadine 10 mg tablet 10 mg PO DAILY 09/07/21 Unkn own History omeprazole 40 mg capsule,delayed 40 mg PO DAILY Unknown History release sucralfate 1 gram tablet 1 g PO BID PRN GI 09/07/21 U nknown History tamsulosin 0.4 mg capsule 0.4 mg PO QHS 09/07/21 Unkno wn History atenolol 50 mg tablet 50 mg PO DAILY 06/01/22 Unkn own History citalopram 20 mg tablet 40 mg PO DAILY 12/06/22 Unkn own History melatonin 3 mg tablet 3 mg PO QHS 12/06/22 Unknown History Disability placard #1 ea 04/07/23 Unknown Rx carbidopa 25 mg-levodopa 100 mg 1 tab PO TID #90 tabs 10/09/24 Unknown Rx tablet losartan 25 mg tablet 25 mg PO QHS 01/30/25 Unknow n History semaglutide 0.25 mg or 0.5 mg (2 0.5 mg subcut QWEEK 0 01/30/25 Unknown History mg/3 mL) subcutaneous pen injector (Ozempic) Allergy/AdvReac Type Severity Reaction Status Date / Time propoxyphene napsylate (From Allergy Unknown Verified 01/30/25 12:43 Darle[place]et-N) Family History Mother Diabetes Father Diabetes Sister Diabetes Son Diabetes Surgical History History of back surgery Social History Smoking Status: Never smoker Electronic Cigarette Use: not used second hand exposure: No alcohol intake: former year quit: 1981 substance use type: does not use mimi/faith: None seatbelt use: always EXAM Physical Exam Const Vital Signs: 01/30/25 12:37 01/30/25 12:41 01/30/25 13:01 Temperature 98 F Temperature Source Oral Pulse Rate 83 81 82 Respiratory Rate 18 17 18 Blood Pressure 141/80 H 171/81 H 166/92 H Blood Pressure Mean 100 111 116 Pulse Ox 97 96 96 Oxygen Delivery Method Room Air Room Air Room Air 01/30/25 13:11 Temperature Temperature Source Pulse Rate 83 Respiratory Rate 18 Blood Pressure 166/92 H Blood Pressure Mean 116 Pulse Ox 97 Oxygen Delivery Method Room Air [facility] Lab Data Labs: Laboratory Results - last 24 hr 01/30/25 01/30/25 12:39 12:55 WBC 4.9 RBC 4.41 L Hgb 13.7 Hct 39.6 L MCV 89.8 MCH 31.1 MCHC 34.6 RDW Std Deviation 43.2 RDW Coeff of Meliton 13.2 Plt Count 151 MPV 9.6 Immature Gran % (Auto) 0.400 Neut % (Auto) 59.9 Lymph % (Auto) 23.6 [place] % (Auto) 13.3 H Eos % (Auto) 2.0 Baso % (Auto) 0.8 Absolute Neuts (auto) 2.9 Absolute Lymphs (auto) 1.15 Nucleated RBC % 0 PT 14.3 INR 1.1 APTT 32.3 POC Glucose 243 H Radiography Diagnostic Testing: Clinical Impression(s) from Imaging Studies Brain CT 01/30/25 12:42 IMPRESSION: 1. No visible acute intracranial findings. If there is persistent concern for an acute intracranial process, consider MRI. 2. Mild paranasal sinus disease, improved from 09/10/2021. 3. Additional description as above. Red Alert: #1 above The critical information above was relayed directly by me by telephone to Kimmie Rene on 01/30/2025 at 11:11 am [facility]. Reading Location: [facility] Head/Neck CTA 01/30/25 12:45 IMPRESSION: 1. No large vessel occlusion identified. 2. Multifocal stenoses as detailed, up to 60% along the LEFT P2. 3. Additional description as above. Reading Location: [facility] Chest X-Ray 01/30/25 13:10 IMPRESSION: 1. No visible acute cardiopulmonary findings 2. Additional description as above. Reading Location: [facility] Discharge Plan Triage Chief Complaint: Stroke Alert ED Provider: Kimmie Rene Dx/Rx/DC Orders Prescriptions: No Action tamsulosin 0.4 mg capsule 0.4 mg PO QHS omeprazole 40 mg capsule,delayed release(DR/EC) 40 mg PO DAILY sucralfate 1 gram tablet 1 g PO BID PRN (Reason: GI) loratadine 10 mg tablet 10 mg PO DAILY cholecalciferol (vitamin D3) 125 mcg (5,000 unit) capsule 125 mcg PO DAILY glimepiride 1 mg tablet 1 mg PO BID citalopram 20 mg tablet 40 mg PO DAILY (DME) Disability placard See Rx Instructions .Route .MEDSUPPLY Qty: 1 0RF Rx Instructions: Expiration: 04/07/2026 carbidopa-levodopa 25-100 mg tablet 1 tab PO TID Qty: 90 10RF metformin 500 MG tablet 1,000 mg PO BIDCM atorvastatin 80 MG tablet 80 mg PO QHS aspirin 81 MG tablet,chewable 81 mg PO DAILY@0800 potassium chloride [Klor-Con M10] 10 MEQ tablet,ER particles/crystals 20 meq PO DAILY Fish Oil 500 MG capsule,delayed release(DR/EC) 1,000 mg PO DAILY atenolol 50 mg tablet 50 mg PO DAILY melatonin 3 mg tablet 3 mg PO QHS multivitamin with folic acid [Thera] 1 TABLET tablet 1 tab PO DAILY Ozempic 0.25 mg or 0.5 mg (2 mg/3 mL) pen injector 0.5 mg subcut QWEEK losartan 25 mg tablet 25 mg PO QHS Primary Care Provider: Columba Liz Referrals: Columba Liz, PATROL OFFICER-C [Primary Care Provider] - Print Language: Malay
--- NOTE | 2025-01-30 13:48 | ED.VIS.STROK ---
HPI History of Present Illness Chief Complaint: Stroke Alert Informant: patient and spouse/S.O. Narrative Narrative: Patient is 79-year-old male with history of hypertension, dyslipidemia, neuropathy and Parkinson's disease as well as diabetes mellitus presenting from home with right arm weakness and feeling off. Patient states he woke up feeling fine at 9 AM. At 10 AM his symptoms started. He states his right arm felt numb and weak and he dropped something. He is right-hand dominant. He notes he has been feeling off balance and feels a little foggy/goofy. He denies any head injuries. Denies any vision changes, leg numbness or weakness. Denies any speech changes. Denies a history of stroke but does have Parkinson's disease. Does follow with neurology. States he has had a couple times in the past where he is had paresthesias of his arm but nothing like this. No other complaints or concerns reported at this time. Patient states he did not take his morning medication today. [facility] Medical History Fatigue Hemiballism Parkinsonian features Depression Vitamin D deficiency Screening for malignant neoplasm of colon GERD (gastroesophageal reflux disease) Essential hypertension Impotence Hyperlipidemia Type 2 diabetes mellitus Home Medications ?Medication ?Instructions ?Recorded ?Last Taken ?Type aspirin 81 mg chewable tablet 81 mg PO DAILY@0800 11/04/14 Unknown History atorvastatin 80 mg tablet 80 mg PO QHS 11/04/14 Unknown History metformin 500 mg tablet 1,000 mg PO BIDCM 11/04/14 Unknown History omega 3-dha 60 mg-epa 90 mg-fish 1,000 mg PO DAILY 11/04/14 Unknown History oil 500 mg capsule, delayed release (Fish Oil) potassium chloride 10 mEq 20 meq PO DAILY 11/04/14 Unknown History tablet,extended release(part/cryst) (Klor-Con M) multivitamin with folic acid 400 1 tab PO DAILY 10/08/15 Unknown History mcg tablet (Thera) cholecalciferol (vitamin D3) 125 125 mcg PO DAILY 09/07/21 Unknown History mcg (5,000 unit) capsule glimepiride 1 mg tablet 1 mg PO BID 09/07/21 Unknown History loratadine 10 mg tablet 10 mg PO DAILY 09/07/21 Unknown History omeprazole 40 mg capsule,delayed 40 mg PO DAILY 09/07/21 Unknown History release sucralfate 1 gram tablet 1 g PO BID PRN GI 09/07/21 Unknown History tamsulosin 0.4 mg capsule 0.4 mg PO QHS 09/07/21 Unknown History atenolol 50 mg tablet 50 mg PO DAILY 06/01/22 Unknown History citalopram 20 mg tablet 40 mg PO DAILY 12/06/22 Unknown History melatonin 3 mg tablet 3 mg PO QHS 12/06/22 Unknown History Disability placard #1 ea 04/07/23 Unknown Rx carbidopa 25 mg-levodopa 100 mg 1 tab PO TID #90 tabs 10/09/24 Unknown Rx tablet losartan 25 mg tablet 25 mg PO QHS 01/30/25 Unknown History semaglutide 0.25 mg or 0.5 mg (2 0.5 mg subcut QWEEK 01/30/25 Unknown History mg/3 mL) subcutaneous pen injector (Ozempic) Allergy/AdvReac Type Severity Reaction Status Date / Time propoxyphene napsylate (From Allergy Unknown Verified 01/30/25 12:43 Darvocet-N) Family History Mother Diabetes Father Diabetes Sister Diabetes Son Diabetes Surgical History History of back surgery Social History Smoking Status: Never smoker Electronic Cigarette Use: not used second hand exposure: No alcohol intake: former year quit: 1981 substance use type: does not use mimi/gnosticism: None seatbelt use: always ROS ROS ED Constitutional Constitutional ED: Denies chills or fever(s) Eyes Eyes: Denies change in vision Cardiovascular Cardiovascular: Denies chest pain or palpitations Respiratory/Chest Respiratory/Chest: Denies cough Gastrointestinal Gastrointestinal: Denies abdominal pain, nausea or vomiting Musculoskeletal Musculoskeletal: Denies arthralgias or myalgias Integumentary Denies rash Neurologic Neurologic: Reports paresthesias RUE and weakness; Denies headache(s) Psychiatric Psychiatric: Denies anxiety Hematologic/Lymphatic Hematologic/Lymphatic: Denies easy bleeding or easy bruising EXAM Physical Exam Const Vital Signs: 01/30/25 12:37 01/30/25 12:41 01/30/25 13:01 Temperature 98 F Temperature Source Oral Pulse Rate 83 81 82 Respiratory Rate 18 17 18 Blood Pressure 141/80 H 171/81 H 166/92 H Blood Pressure Mean 100 111 116 Pulse Ox 97 96 96 Oxygen Delivery Method Room Air Room Air Room Air 01/30/25 13:11 01/30/25 13:30 Temperature Temperature Source Pulse Rate 83 78 Respiratory Rate 18 14 Blood Pressure 166/92 H 132/121 H Blood Pressure Mean 116 124 Pulse Ox 97 95 Oxygen Delivery Method Room Air Room Air Positive well nourished and well developed General Appearance ED: well developed and NAD HEENT Reports moist mucous membranes Eyes PERRL and EOMs intact bilaterally Neck supple and no JVD Chest Wall inspection of chest normal and palpation of chest normal Resp normal respiratory effort and clear to auscultation bilaterally Cardio Cardio Narrative: 2+ radial pulses present. Rate: regular rate Rhythm: regular rhythm GI normal to inspection, nondistended, normoactive bowel sounds, soft to palpation and non-tender Extremity normal to inspection General Extremety ED: Negative for deformity or edema General Extremity: Negative for deformity or edema Neuro oriented x3, CN's II-XII intact bilaterally and no sensory deficits noted Neuro Narrative: Ataxia noted with the right upper extremity with [id number] and some subtle ataxia noted with the right leg with [id number]. There are some very subtle drift of the right upper extremity. NIH equals 2 Speech: speech normal Sensory Exam: No sensory level loss detected Psych mental status grossly normal Skin no wounds Rashes: no rashes MDM MDM MDM Narrative Medical decision making narrative: Patient evaluated for right-sided arm weakness as well as ataxia. Stroke alert was called however patient symptoms resolved in the emergency room. Edition he did not have debilitating symptoms and not a candidate for TNK. Case is discussed with teleneurology, Neurologist through [facility]. He is in agreement. On his examination patient's NIH is now 0. Does recommend admission for further stroke evaluation and also recommends loading him with 325 of aspirin as well as 300 mg of Plavix. This is ordered. In addition patient is given his morning dose of atenolol as he is mildly hypertensive and his morning dose of Sinemet. I did speak with neurology and they also voiced that it is possible he could have some point need outpatient EEG but at this time would start with stroke evaluation as he does have risk factors. Patient and agreeable this plan of care. Case discussed with hospitalist, Dr. Huynh. Is admitted to PCU. Neurology note from 10/09/[address] Arellano reviewed: Has mild intermittent bilateral hand tremor with slightly shuffling gait. Continue carbidopa levodopa Lab Data Attestation: I reviewed the patient's lab results. Labs: Laboratory Results - last 24 hr 01/30/25 01/30/25 12:39 12:55 WBC 4.9 RBC 4.41 L Hgb 13.7 Hct 39.6 L MCV 89.8 MCH 31.1 MCHC 34.6 RDW Std Deviation 43.2 RDW Coeff of Meliton 13.2 Plt Count 151 MPV 9.6 Immature Gran % (Auto) 0.400 Neut % (Auto) 59.9 Lymph % (Auto) 23.6 [place] % (Auto) 13.3 H Eos % (Auto) 2.0 Baso % (Auto) 0.8 Absolute Neuts (auto) 2.9 Absolute Lymphs (auto) 1.15 Nucleated RBC % 0 PT 14.3 INR 1.1 APTT 32.3 Sodium 133 Potassium 4.0 Chloride 99 Carbon Dioxide 24.0 Anion Gap 9 BUN 13 Creatinine 0.87 Estim Creat Clear Calc 85.02 Est GFR (MDRD) Non-Af 89 BUN/Creatinine Ratio 15.0 Glucose 268 H Calcium 9.0 Troponin T High Sens 16 POC Glucose 243 H Radiography Chest X-Ray - ED: Read by ED Physician, Read by Radiologist and No Acute Disease Diagnostic Testing: Clinical Impression(s) from Imaging Studies Brain CT 01/30/25 12:42 IMPRESSION: 1. No visible acute intracranial findings. If there is persistent concern for an acute intracranial process, consider MRI. 2. Mild paranasal sinus disease, improved from 09/10/2021. 3. Additional description as above. Red Alert: #1 above The critical information above was relayed directly by me by telephone to Kimmie Rene on 01/30/2025 at 11:11 am [facility]. Reading Location: [id number] Head/Neck CTA 01/30/25 12:45 IMPRESSION: 1. No large vessel occlusion identified. 2. Multifocal stenoses as detailed, up to 60% along the LEFT P2. 3. Additional description as above. Reading Location: [facility] Chest X-Ray 01/30/25 13:10 IMPRESSION: 1. No visible acute cardiopulmonary findings 2. Additional description as above. Reading Location: [facility] Rhythm Strip Rhythm Strip: Sinus Rhythm Rate: 81 Ectopy: None EKG Initial EKG: Attestation: I personally reviewed and interpreted this EKG as follows: Interpretation: Sinus Rhythm Comments: Normal sinus rhythm at a rate of 81 bpm First-degree AV block with a OR interval of 210 Left axis deviation Normal ST segments Prior EKG tracings: available for review Prior: Unchanged Management Discussion w/another healthcare provider: Hospitalist, [employer] Specialist (Neurology ) and Radiologist Discharge Plan Triage Chief Complaint: Stroke Alert ED Provider: Kimmie Rene Dx/Rx/DC Orders Clinical Impression: Brain TIA, Ataxia of right upper extremity, Parkinson's disease Primary Care Provider: Columba Liz Disposition Disposition: Acute Care Hospital [facility] NIHSS NIHSS 1a. Level of Consciousness: 0 - Alert; keenly responsive 1b. LOC Questions: 0 - Answers BOTH questions correctly 1c. LOC Commands: 0 - Performs BOTH tasks correctly 3. Visual: 0 - No visual loss 4. Facial Palsy: 0 - Normal symmetrical movements 5a. Left Arm: 0 - No drift; arm holds 90 (or 45) degrees for full 10 seconds 5b. Right Arm: 1 - Drift; arm drifts downward but doesn?t hit the bed 6a. Left Le - No drift; leg holds 30-degree position for full 5 seconds 6b. Right Le - No drift; leg holds 30-degree position for full 5 seconds 7. Limb Ataxia: 1 - Present in 1 limb 8. Sensory: 0 - Normal; no sensory loss 9. Best Language: 0 - No aphasia; normal 10. Dysarthria: 0 - Normal 11. Extinction and Inattention: 0 - No abnormality Total: 2 Stroke Questions Stroke Team Activated: Yes Reviewed Inclusion/Exclusion criteria: Yes Was Patient considered for Endovascular Intervention?: No (No LVO) IV Thrombolytic Administered: No (Symptoms resolved in the emergency room)
[2025-01-30 13:54] LABS: Anion Gap 9 (5-15); BUN 13 mg/dL (4-19); Chloride 99 mmol/L (98-108); Creatinine, Serum 0.87 mg/dL (0.70-1.20); EST Glomerular Filtration Rate 89 (>60); Estimated Creatinine Clearance 85.02 ml/min (50-250); Glucose 268 mg/dL (70-99); Sodium Level 133 mmol/L (133-145); Troponin T High Sensitivity 16 ng/L (<=22)
[2025-01-30] MEDS: Atenolol 50 MG Tablet PO (14:04)
[2025-01-30] MEDS: Carbidopa/Levodopa 25/100 Tablet PO ×2 (14:04→22:18)
[2025-01-30] MEDS: Aspirin 325 MG Tablet PO (14:04)
[2025-01-30] MEDS: Clopidogrel Bisulfate 300 MG Tablet PO (14:04)
--- NOTE | 2025-01-30 14:21 | ED.RN ---
pulled 4 ASA thinking they were 81 mg. (1) 325 mg was given as ordered
--- NOTE | 2025-01-30 14:24 | PCM.HP.STD ---
HPI - General General Date of Admission: 01/30/25 Date of Service: 01/30/25 Chief Complaint: Right arm numbness and weakness HPI Narrative KAYLEN BAJWA, is [id number] male with a history of hypertension, Parkinson's disease, depression, diabetes, GERD, BPH presented to [facility] ED 01/30/2025 as a stroke alert. Reportedly patient presented with right arm numbness and weakness that started suddenly at 10 AM and was on and off until noon. He was in bed when symptoms first started and then they were on and off throughout his morning and afternoon activities. Has had this 2 times in the past year but had resolution within 10 minutes but given this persisted he came to the ED for evaluation. Patient had CT head/CTA with some moderate plaque in bilateral carotids, workup otherwise negative, telestroke recommended admission with carotid ultrasound, loading with aspirin and Plavix and further stroke workup. Patient not a TNK candidate. Hospitalist contacted for admission. Patient evaluated at bedside with family present. He reports history as above with being in his usual health up until 10 AM this morning when he had right arm numbness and weakness and felt off balance and also felt foggy, on arrival to the ED had an NIH of 2 but symptoms have completely resolved now with an NIH of 0. ROS completely negative [facility] Medical History Fatigue Hemiballism Parkinsonian features Depression Vitamin D deficiency Screening for malignant neoplasm of colon GERD (gastroesophageal reflux disease) Essential hypertension Impotence Hyperlipidemia Type 2 diabetes mellitus Home Medications ?Medication ?Instructions ?Recorded ?Last Taken ?Type aspirin 81 mg chewable tablet 81 mg PO DAILY@0800 11/04/14 Unknown History atorvastatin 80 mg tablet 80 mg PO QHS 11/04/14 Unknown History metformin 500 mg tablet 1,000 mg PO BIDCM 11/04/14 Unknown History omega 3-dha 60 mg-epa 90 mg-fish 1,000 mg PO DAILY 11/04/14 Unknown History oil 500 mg capsule, delayed release (Fish Oil) potassium chloride 10 mEq 20 meq PO DAILY 11/04/14 Unknown History tablet,extended release(part/cryst) (Klor-Con M) multivitamin with folic acid 400 1 tab PO DAILY 10/08/15 Unknown History mcg tablet (Thera) cholecalciferol (vitamin D3) 125 125 mcg PO DAILY 09/07/21 Unknown History mcg (5,000 unit) capsule glimepiride 1 mg tablet 1 mg PO BID 09/07/21 Unknown History loratadine 10 mg tablet 10 mg PO DAILY 09/07/21 Unknown History omeprazole 40 mg capsule,delayed 40 mg PO DAILY 09/07/21 Unknown History release sucralfate 1 gram tablet 1 g PO BID PRN GI 09/07/21 Unknown History tamsulosin 0.4 mg capsule 0.4 mg PO QHS 09/07/21 Unknown History atenolol 50 mg tablet 50 mg PO DAILY 06/01/22 Unknown History citalopram 20 mg tablet 40 mg PO DAILY 12/06/22 Unknown History melatonin 3 mg tablet 3 mg PO QHS 12/06/22 Unknown History Disability placard #1 ea 04/07/23 Unknown Rx carbidopa 25 mg-levodopa 100 mg 1 tab PO TID #90 tabs 10/09/24 Unknown Rx tablet losartan 25 mg tablet 25 mg PO QHS 01/30/25 Unknown History semaglutide 0.25 mg or 0.5 mg (2 0.5 mg subcut QWEEK 01/30/25 Unknown History mg/3 mL) subcutaneous pen injector (Ozempic) Allergy/AdvReac Type Severity Reaction Status Date / Time propoxyphene napsylate (From Allergy Unknown Verified 01/30/25 12:43 Darvocet-N) Family History Mother Diabetes Father Diabetes Sister Diabetes Son Diabetes Surgical History History of back surgery Social History Smoking Status: Never smoker Electronic Cigarette Use: not used second hand exposure: No alcohol intake: former year quit: 1981 substance use type: does not use mimi/anglican: None seatbelt use: always ROS ROS Narrative General: Denies fever/chills HENT: Denies headache, denies stuffy nose, denies sore throat EYES: Denies changes in vision Resp: Denies cough, denies shortness of breath Cardiac: Denies chest pain GI: Denies abdominal pain, denies changes in bowel, denies nausea/vomiting : Denies changes in urination Extremity: Denies swelling MSK: Denies weakness Neuro: Denies any numbness/tingling, right arm numbness and weakness resolved Heme: Denies any bleeding or bruising Skin: Denies rashes Psychiatric: No complaints voiced Vital Signs Vital Signs Vital Signs: 01/30/25 12:37 01/30/25 12:41 01/30/25 13:01 Temperature 98 F Temperature Source Oral Pulse Rate 83 81 82 Respiratory Rate 18 17 18 Blood Pressure 141/80 H 171/81 H 166/92 H Blood Pressure Mean 100 111 116 Pulse Ox 97 96 96 Oxygen Delivery Method Room Air Room Air Room Air 01/30/25 13:11 01/30/25 13:30 01/30/25 14:00 Temperature 98.6 F Temperature Source Oral Pulse Rate 83 78 75 Respiratory Rate 18 14 18 Blood Pressure 166/92 H 132/121 H 160/91 H Blood Pressure Mean 116 124 114 Pulse Ox 97 95 97 Oxygen Delivery Method Room Air Room Air Room Air 01/30/25 14:06 Temperature 98.6 F Temperature Source Pulse Rate 76 Respiratory Rate 18 Blood Pressure 160/91 H Blood Pressure Mean 114 Pulse Ox 97 Oxygen Delivery Method Weight Weight: 94.937 kg Body Mass Index (BMI) 28.3 Physical Exam Narrative General: Alert, oriented, no apparent distress HEENT: Atraumatic, normocephalic Eyes: Anicteric, normal conjunctiva, extraocular movements intact, pupils equal Neck: Supple Respiratory: Clear to auscultation bilaterally, normal respiratory effort Cardiovascular: Regular rate and rhythm GI: Soft, nontender, nondistended Extremities: No edema Musculoskeletal: Strength 5 out of 5 in right upper extremity, 5 out of 5 left upper extremity, 5 out of 5 right lower extremity, 5 out of 5 left lower extremity Neuro: No overt focal neurological deficits, cranial nerves II through XII intact, [id number] without significant difficulty bilaterally Skin: No rashes appreciated Psych: Cooperative Results Lab / Micro Data 01/30/25 12:55 01/30/25 12:55 Labs: Laboratory Results - last 24 hr 01/30/25 12:39: POC Glucose 243 H 01/30/25 12:55: WBC 4.9, RBC 4.41 L, Hgb 13.7, Hct 39.6 L, MCV 89.8, MCH 31.1, MCHC 34.6, RDW Std Deviation 43.2, RDW Coeff of Meliton 13.2, Plt Count 151, MPV 9.6, Immature Gran % (Auto) 0.400, Neut % (Auto) 59.9, Lymph % (Auto) 23.6, Perkins % (Auto) 13.3 H, Eos % (Auto) 2.0, Baso % (Auto) 0.8, Absolute Neuts (auto) 2.9, Absolute Lymphs (auto) 1.15, Nucleated RBC % 0, PT 14.3, INR 1.1, APTT 32.3, Sodium 133, Potassium 4.0, Chloride 99, Carbon Dioxide 24.0, Anion Gap 9, BUN 13, Creatinine 0.87, Estim Creat Clear Calc 85.02, Est GFR (MDRD) Non-Af 89, BUN/Creatinine Ratio 15.0, Glucose 268 H, Calcium 9.0, Troponin T High Sens 16 Imaging Radiology Impression Brain CT 01/30/25 12:42 IMPRESSION: 1. No visible acute intracranial findings. If there is persistent concern for an acute intracranial process, consider MRI. 2. Mild paranasal sinus disease, improved from 09/10/2021. 3. Additional description as above. Red Alert: #1 above The critical information above was relayed directly by me by telephone to Kimmie Rene on 01/30/2025 at 11:11 am [facility]. Reading Location: [facility] Head/Neck CTA 01/30/25 12:45 IMPRESSION: 1. No large vessel occlusion identified. 2. Multifocal stenoses as detailed, up to 60% along the LEFT P2. 3. Additional description as above. Reading Location: [id number] Chest X-Ray 01/30/25 13:10 IMPRESSION: 1. No visible acute cardiopulmonary findings 2. Additional description as above. Reading Location: [facility] Assessment & Plan Assessment/Plan (1) Neurologic abnormality: PLAN: Plan # Intermittent right arm numbness and weakness -Symptoms have since resolved -Was a stroke alert in the ED with teleneurology evaluation -Admit to tele -CT head with no acute process -CTA head and neck with some moderate plaque in bilateral carotids -MRI ordered -NIH q4hr -Loaded with aspirin and Plavix -asa, statin -Echo -Carotid duplex per neurology recommendations -PT/OT/Speech eval -Teleneuro consult ordered -Hold BP medications to allow for permissive hypertension for 24 hours unless SBP greater than 220 or DBP greater than 120 or until stroke is ruled out #Type 2 diabetes mellitus -Glucose checks and sliding scale insulin - Hold home oral hypoglycemics #Hypertension - Allow permissive hypertension as above #Chronic BPH with obstruction -Continue home medications #GERD -Continue PPI #Depression/anxiety -Continue home medications # Parkinson's disease - continue home Sinemet - supportive care #DVT ppx: SCDs Radha Llanes MD Charges/Coding Visit Charges Inpatient E&M: 21128 Init Hosp L2
--- NOTE | 2025-01-30 14:38 | MRI_ITS ---
PROCEDURE: Vertigo, 01/30/2025 REASON FOR EXAM: CVA/TIA R/O COMPARISON: CT and CTA of same date TECHNIQUE: Multisequence multiplanar MRI brain was performed without intravenous contrast. IV contrast: None. FINDINGS: Cerebrum: Punctate focus of restricted diffusion in the high LEFT frontal likely motor cortex measuring 3 mm consistent with acute infarct. No mass-effect or appreciable intracranial hemorrhage. Mild background supratentorial white matter abnormality, nonspecific but compatible with chronic microvascular ischemic changes, slightly increased from 09/10/2021. Mild/moderate diffuse cerebral volume loss. Cerebellum: Unremarkable. Brainstem: Unremarkable. Ventricles/extra-axial spaces: Age appropriate appearance. Major flow voids: Better evaluated on previous CTA.. Paranasal sinuses: Redemonstrated mucous retention cysts versus polyps in the RIGHT ethmoid air cells and RIGHT frontal sinus. Background mild ethmoid mucosal thickening. Mild inferior LEFT maxillary mucosal thickening.. Scalp/calvarium: Similar small presumed sebaceous or epidermal inclusion cysts in the RIGHT occipital scalp.. Orbits: Grossly unremarkable within limits of nondedicated technique. MRI/Brain without Contrast IMPRESSION: 1. Findings are compatible with punctate acute infarct in the high LEFT posteri or frontal lobe. No mass-effect or appreciable hemorrhage. 2. Additional description as above. Findings were discussed by telephone with Adonay Banks RN at 5:03 Pm [facility] on 01/30 by Iglesia Devi. Reading Location: [facility]
--- NOTE | 2025-01-30 14:38 | ECHOCS_ITS ---
Reason For Study Reason For Study: TIA/CVA Procedure This was a 2D Doppler, Color Flow transthoracic echocardiogram. The study was technically difficult. Contrast injection was performed. Exam performed portable in patient room. Left Ventricle Normal LV size. Moderate concentric left ventricular hypertrophy. The left ventricular ejection fraction is 70 %. Stage 1 diastolic dysfunction. Right Ventricle Normal right ventricle. Atria The left atrium is mildly enlarged. Normal right atrium. Mitral Valve There is Mild focal posterior mitral annular calcification. Trivial mitral valve insufficiency. Tricuspid Valve Trivial tricuspid valve insufficiency. Unable to estimate RV systolic pressure due to insufficient tricuspid regurgitant envelope. Aortic Valve Mild diffuse aortic valve calcification. Aortic sclerosis, no stenosis. Mild (1+) aortic valve insufficiency. Pulmonic Valve The pulmonic valve is not well visualized. Trivial pulmonic valve insufficiency. Great Vessels Normal sized aortic root. Pericardium/Pleural No pericardial effusion. Medication Diluted definity 2ml given slow IV push to enhance endocardial definition. MMode/2D Measurements & Calculations LVIDd: 5.1 cm IVSd: 1.6 cm LVOT diam: 2.0 cm LVIDs: 3.7 cm LVPWd: 1.5 cm FS: 26.8 % LVOT area: 3.2 cm2 Ao root diam: 3.6 cm LAV(MOD-bp): 58.8 ml LVAd ap4: 34.5 cm2 LAV(MOD-bp) Indexed: 30.9 ml/m2 LVLd ap4: 8.5 cm LAV(MOD-sp2): 64.4 ml EDV(MOD-sp4): 110.9 ml LAV(MOD-sp4): 54.3 ml EDV(sp4-el): 119.2 ml LVAs ap4: 21.7 cm2 LVLs ap4: 7.2 cm ESV(MOD-sp4): 57.7 ml ESV(sp4-el): 55.5 ml EF(MOD-sp4): 48.0 % EF(sp4-el): 53.4 % SV(MOD-sp4): 53.2 ml SV(sp4-el): 63.6 ml Aortic Valve Planimetry: 2.6 cm2 SI(MOD-sp4): 27.9 ml/m2 LA A4 area: 19.1 cm2 LA dimension(2D): 4.2 cm TAPSE: 1.8 cm Time Measurements MV dec time: 0.26 sec Doppler Measurements & Calculations MV E max waldo: 44.3 cm/sec Lat Peak E' Waldo: 5.8 cm/sec Med Peak E' Waldo: 3.7 cm/sec MV A max waldo: 67.9 cm/sec E/E' lat: 7.6 E/E' med: 12.0 MV E/A: 0.65 MV V2 max: 76.4 cm/sec MV P1/2t max waldo: 55.6 cm/sec Ao V2 max: 142.4 cm/sec MV max P.3 mmHg MV P1/2t: 91.1 msec Ao max P.1 mmHg MV V2 mean: 40.2 cm/sec MV dec slope: 178.6 cm/sec2 Ao V2 mean: 93.0 cm/sec MV mean P.77 mmHg MVA(P1/2t): 2.4 cm2 Ao mean P.1 mmHg MV V2 VTI: 19.4 cm Ao V2 VTI: 27.3 cm MVA(VTI): 3.1 cm2 AV (velocity ratio): 0.71 FRITZ(I,D): 2.2 cm2 FRITZ(V,D): 2.0 cm2 AI max waldo: 307.3 cm/sec LV V1 max: 89.0 cm/sec SV(LVOT): 61.0 ml AI max P.8 mmHg LV V1 max P.2 mmHg LV V1 mean P.6 mmHg AI dec slope: 87.0 cm/sec2 LV V1 mean: 59.3 cm/sec AI P1/2t: 1034 msec LV V1 VTI: 19.3 cm PA V2 max: 88.0 cm/sec ECHO/Echo Complete W/ Contrast Interpretation Summary Moderate concentric left ventricular hypertrophy. The left ventricular ejection fraction is 70 %. Stage 1 diastolic dysfunction. The left atrium is mildly enlarged. There is Mild focal posterior mitral annular calcification. Aortic sclerosis, no stenosis. Mild (1+) aortic valve insufficiency. Ordering Physician: Radha Llanes Performed By: Elian Lowry RCS
--- NOTE | 2025-01-30 14:38 | CDU_ITS ---
Reason For Study Reason For Study: Carotid stenosis Rt. Velocities/BP Lt. Velocities/BP Prox CCA 80.6/9.7 cm/sec. Prox CCA 83.4/11.6 cm/sec. Mid CCA 91.9/9.7 cm/sec. Mid CCA 78.7/9.7 cm/sec. Dist CCA 57.9/6.9 cm/sec. Dist CCA 63.6/9.7 cm/sec. Prox ICA 39/9.7 cm/sec. Prox ICA 56.4/13.5 cm/sec. Mid ICA 46.7/9.9 cm/sec. Mid ICA 59.7/16.8 cm/sec. Dist ICA 56.5/13 cm/sec. Dist ICA 60.8/16.8 cm/sec. Rt. ICA/CCA = 0.61. Lt. ICA/CCA = 0.77. Prox ECA 126.6/1.3 cm/sec. Prox ECA 185.1/5 cm/sec. Rt. Vert. 44.7/10.7 cm/sec. Lt. Vert. 66.3/6.9 cm/sec. Right Extracranial There is heterogeneous, smooth atherosclerotic plaque noted in the right common carotid artery. There is heterogeneous, irregular atherosclerotic plaque noted in the right internal carotid artery. There is heterogeneous, irregular atherosclerotic plaque noted in the right external carotid artery. The atherosclerotic plaque causes acoustic shadowing. Antegrade flow is noted in the right vertebral artery. Left Extracranial There is heterogeneous, smooth atherosclerotic plaque noted in the left common carotid artery. There is heterogeneous, irregular atherosclerotic plaque noted in the left internal carotid artery. There is heterogeneous, irregular atherosclerotic plaque noted in the left external carotid artery. The atherosclerotic plaque causes acoustic shadowing. Antegrade flow is noted in the left vertebral artery. Procedure Carotid Duplex 20606. This is a Carotid Duplex examination using B-mode, color flow and specral Doppler. Exam performed portable in patient room. VL/Carotid Duplex Ultrasound Interpretation Summary Mild (<50%) stenosis right extracranial internal carotid. Mild (<50%) stenosis left extracranial internal carotid. Patent and antegrade vertebrals bilaterally. Ordering Physician: Radha Llanes Referring Physician: Columba Liz Performed By: Camila Waite RVT
[2025-01-30 15:36] LABS: Troponin T High Sens 2 HR 18 ng/L (<=22)
[2025-01-30 17:31] LABS: Troponin T High Sens 4 HR 15 ng/L (<=22)
[2025-01-30] MEDS: Insulin Lispro 100 UNIT/ML INSULN.PEN SC ×2 (17:51→22:18)
[2025-01-30 17:56] LABS: Bedside Glucose 221 mg/dL (74-106)
[2025-01-30] MEDS: MELATONIN 3 MG TABLET PO (22:18)
[2025-01-30] MEDS: Tamsulosin HCl 0.4 MG Capsule PO (22:18)
[2025-01-30] MEDS: Atorvastatin Calcium 80 MG Tablet PO (22:18)
[2025-01-30] MEDS: 0.9% Saline Lock 10 ML Syringe IV (22:19)
[2025-01-31 01:30] LABS: Bedside Glucose 218 mg/dL (74-106)
[2025-01-31 02:00] VITALS: BP 164/84; PULSE 63; RESP 16; TEMP 36.6; O2SAT 96
[2025-01-31 02:18] LABS: Magnesium 1.7 mg/dL (1.5-2.2)
[2025-01-31 06:00] VITALS: BP 158/84; PULSE 69; RESP 16; TEMP 36.6; O2SAT 94
[2025-01-31] MEDS: Insulin Lispro 100 UNIT/ML INSULN.PEN SC ×3 (06:17→17:19)
[2025-01-31 07:08] LABS: Absolute Neutrophil Count 2.8 X10^3/uL (2.0-7.7); Basophil# 0.02 X10^3/uL; Basophil% 0.4 % (0-1); Eosinophil# 0.11 X10^3/uL; Eosinophils% 2.2 % (0-5); Hematocrit 42.2 % (40-54); Hemoglobin 14.6 g/dL (13.0-16.5); Lymphocyte % 26.2 % (19-41); Mean Corp Hgb Conc 34.6 g/dL (32-36); Mean Corpuscular Hgb 31.1 pg (27.0-32.0); Mean Corpuscular Volume 89.8 fL (80-94); Mean Platelet Vol. 9.9 fl (6.2-12.0); Monocyte% 14.1 % (0-10); NRBC Flagged by Analyzer 0 % (0-5); Neutrophil # 2.81 X10^3/uL (2.7-7.7); Neutrophil % 56.7 % (47-70); Platelet Count 159 K/mm3 (150-450); RBC Distribution Width SD 42.9 fl (35.1-43.9)
[2025-01-31 07:12] LABS: Bedside Glucose 204 mg/dL (74-106)
[2025-01-31] MEDS: Carbidopa/Levodopa 25/100 Tablet PO ×3 (07:19→16:14)
[2025-01-31 07:36] LABS: International Normalized Ratio 1.1
[2025-01-31 07:50] VITALS: O2SAT 95
[2025-01-31 07:52] LABS: Anion Gap 13 (5-15); BUN 11 mg/dL (4-19); BUN/Creat Ratio 15.5 RATIO (10-20); Calcium,Total 9.3 mg/dL (7.6-11.0); Carbon Dioxide 20.9 mmol/L (21.0-32.0); Chloride 102 mmol/L (98-108); Cholesterol 138 mg/dL (<=200); Creatinine, Serum 0.73 mg/dL (0.70-1.20); EST Glomerular Filtration Rate 94 (>60); Estimated Creatinine Clearance 84.88 ml/min (50-250); Glucose 221 mg/dL (70-99); High Density Lipoprotein 28 mg/dL; Low Density Lipoprotein Calc. 77 mg/dL; Potassium 3.7 mmol/L (3.3-5.1); Sodium Level 136 mmol/L (133-145); Triglycerides 166 mg/dL; Very Low Density Lipoprotein 33 mg/dL (5-40); cholesterol:hdl ratio screen 4.91
[2025-01-31 08:34] VITALS: BMI 26.3
[2025-01-31 09:02] LABS: Hemoglobin A1c 9.2 % (<=5.6)
[2025-01-31 10:00] VITALS: BP 173/91; PULSE 78; RESP 18; TEMP 36.7; O2SAT 94
[2025-01-31] MEDS: Finasteride 5 MG Tablet PO (10:51)
[2025-01-31] MEDS: Citalopram 40 MG TABLET PO (10:51)
[2025-01-31] MEDS: Omega-3 Acid Ethyl Esters 1 GM Capsule PO (10:51)
[2025-01-31] MEDS: Potassium Chloride Oral Tablet 20 MEQ PO (10:51)
[2025-01-31] MEDS: Sucralfate 1 GM Tablet PO (10:51)
[2025-01-31] MEDS: Pantoprazole Sodium 40 MG Tablet PO (10:51)
[2025-01-31] MEDS: Cholecalciferol (Vit D3) 125 MCG CAPSULE (5,000 UNITS) PO (10:51)
[2025-01-31] MEDS: Loratadine 10 MG Tablet PO (10:51)
[2025-01-31] MEDS: Aspirin 81 MG TAB.CHEW PO (10:51)
--- NOTE | 2025-01-31 11:08 | CASEMGMT ---
Met with patient to complete [place] form. [place] form explained to patient who voiced understanding and signed form. Original form placed in pt?s chart and copy provided to patient. Nenita Samuels, Discharge Planning Asst
[2025-01-31 12:07] LABS: Bedside Glucose 317 mg/dL (74-106)
--- NOTE | 2025-01-31 13:19 | CON.PCM.NE_ITS ---
Assessment and Plan: Stroke Assessment/Plan KAYLEN BAJWA is a 79 M with history of hypertension, Parkinson's disease, depression, diabetes, GERD, BPH presented to [facility] ED 01/30/2025 with right arm numbness and weakness. Not a TNK or IR candidate Neurological examination shows intact examination. Neuroimaging shows CTA:atherosclerosis with mild stenosis bilateral ICA, carotid siphons, M2, A2. Carotid Duplex <50% , LA mildly enlarged, MRI:Left posterior frontal stroke. HbA1c: 9.2, LDL: 77 Left MCA stroke cryptogenic in etiology. 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 HLD: target LDL <70. statin Event monitor upon discharge Thanks for consult. spent 40 minutes in dispo planning HPI Consult Data Date of Consult: 01/31/25 HPI Narrative HPI Narrative: KAYLEN BAJWA, is a 79 M with a history of hypertension, Parkinson's disease, depression, diabetes, GERD, BPH presented to [facility] ED 01/30/2025 with right arm numbness and weakness that started suddenly at 10 AM and was on and off for several hours. Has had this 2 times in the past year but had resolution within 10 minutes but given this persisted he came to the ED for evaluation. He denied having slurred speech or other symptoms. CTA with some moderate plaque in bilateral carotids. He was loading with aspirin and Plavix and further stroke workup. Patient not a TNK candidate. No relapse of symptoms [facility] Medical History Fatigue Hemiballism Parkinsonian features Depression Vitamin D deficiency Screening for malignant neoplasm of colon GERD (gastroesophageal reflux disease) Essential hypertension Impotence Hyperlipidemia Type 2 diabetes mellitus Home Medications ?Medication ?Instructions ?Recorded ?Last Taken ?Type aspirin 81 mg chewable tablet 81 mg PO DAILY@0800 02/0 06/1001/29/25 History atorvastatin 80 mg tablet 80 mg PO QHS 11/04/14 Unknow n History metformin 500 mg tablet 1,000 mg PO BIDCM 11/04/14 U nknown History omega 3-dha 60 mg-epa 90 mg-fish 1,000 mg PO DAILY 06/1001/29/25 History oil 500 mg capsule, delayed release (Fish Oil) potassium chloride 10 mEq 20 meq PO DAILY 11/04/1403/20 History tablet,extended release(part/cryst) (Klor-Con M) multivitamin with folic acid 400 1 tab PO DAILY 01/29/25 History mcg tablet (Thera) cholecalciferol (vitamin D3) 125 125 mcg PO DAILY 08/2601/29/25 History mcg (5,000 unit) capsule loratadine 10 mg tablet 10 mg PO DAILY PRN allergies 09/07/21 Unknown History omeprazole 40 mg capsule,delayed 40 mg PO DAILY Unknown History release sucralfate 1 gram tablet 1 g PO BID PRN GI 09/07/21 U nknown History tamsulosin 0.4 mg capsule 0.4 mg PO QHS 09/07/21 Unkno wn History atenolol 50 mg tablet 50 mg PO DAILY 06/01/22 Unkn own History citalopram 20 mg tablet 40 mg PO DAILY 12/06/2203/20 History melatonin 3 mg tablet 3 mg PO QHS 12/06/22 5 History Disability placard #1 ea 04/07/23 Unknown Rx carbidopa 25 mg-levodopa 100 mg 1 tab PO TID #90 tabs 10/09/24 Unknown Rx tablet finasteride 5 mg tablet 5 mg PO DAILY 01/30/25 Unkno wn History glimepiride 2 mg tablet 4 mg PO BID 01/30/25 Unknown History losartan 25 mg tablet 25 mg PO QHS 01/30/25 Unknow n History semaglutide 0.25 mg or 0.5 mg (2 0.5 mg subcut QWEEK d iabetes 01/30/25 Unknown History mg/3 mL) subcutaneous pen injector (Ozempic) Allergy/AdvReac Type Severity Reaction Status Date / Time propoxyphene napsylate (From Allergy Unknown Verified 01/30/25 12:43 Darsegundot-N) Family History Mother Diabetes Father Diabetes Sister Diabetes Son Diabetes Surgical History History of back surgery Social History Smoking Status: Never smoker Electronic Cigarette Use: not used second hand exposure: No alcohol intake: former year quit: 1981 substance use type: does not use mimi/voodoo: None seatbelt use: always Vital Signs Vital Signs Vital Signs: 01/30/25 13:30 01/30/25 14:00 01/30/25 14:06 Temperature 98.6 F 98.6 F Temperature Source Oral Pulse Rate 78 75 76 Pulse Strength Respiratory Rate 14 18 18 Respiratory Effort Respiratory Depth Respiratory Pattern Blood Pressure 132/121 H 160/91 H 160/91 H Blood Pressure Mean 124 114 114 Blood Pressure Source Blood Pressure Position Blood Pressure Location Pulse Ox 95 97 97 Oxygen Delivery Method Room Air Room Air 01/30/25 14:30 01/30/25 15:00 01/30/25 15:30 Temperature Temperature Source Pulse Rate 78 76 75 Pulse Strength Respiratory Rate 18 16 12 Respiratory Effort Respiratory Depth Respiratory Pattern Blood Pressure 160/91 H 172/81 H 154/79 H Blood Pressure Mean 114 111 104 Blood Pressure Source Blood Pressure Position Blood Pressure Location Pulse Ox 97 94 98 Oxygen Delivery Method Room Air Room Air Room Air 01/30/25 17:00 01/30/25 19:55 01/30/25 22:00 Temperature 97.5 F L 98 F Temperature Source Temporal Oral Pulse Rate 76 81 Pulse Strength Respiratory Rate 18 16 Respiratory Effort Respiratory Depth Respiratory Pattern Blood Pressure 171/89 H 180/86 H Blood Pressure Mean 116 117 Blood Pressure Source Monitor Monitor Blood Pressure Position Semi-Fowlers Semi-Fowlers Blood Pressure Location Right Arm Right Arm Pulse Ox 96 94 94 Oxygen Delivery Method Room Air Room Air Room Air 01/30/25 22:00 01/31/25 02:00 01/31/25 02:34 Temperature 98 F Temperature Source Oral Pulse Rate 63 Pulse Strength Respiratory Rate 16 Respiratory Effort Normal Normal Respiratory Depth Normal Normal Respiratory Pattern Normal Normal Blood Pressure 164/84 H Blood Pressure Mean 110 Blood Pressure Source Monitor Blood Pressure Position Supine Blood Pressure Location Right Arm Pulse Ox 96 Oxygen Delivery Method Room Air Room Air Room Air 01/31/25 06:00 01/31/25 07:50 01/31/25 08:32 Temperature 97.8 F Temperature Source Oral Pulse Rate 69 Pulse Strength Normal (2+) Respiratory Rate 16 Respiratory Effort Respiratory Depth Respiratory Pattern Blood Pressure 158/84 H Blood Pressure Mean 108 Blood Pressure Source Monitor Blood Pressure Position Semi-Fowlers Blood Pressure Location Right Arm Pulse Ox 94 95 Oxygen Delivery Method Room Air Room Air 01/31/25 09:03 01/31/25 10:00 Temperature 98.1 F Temperature Source Temporal Pulse Rate 78 Pulse Strength Respiratory Rate 18 Respiratory Effort Normal Non-Labored Respiratory Depth Normal Respiratory Pattern Normal Blood Pressure 173/91 H Blood Pressure Mean 118 Blood Pressure Source Monitor Blood Pressure Position Semi-Fowlers Blood Pressure Location Right Forearm Pulse Ox 94 Oxygen Delivery Method Room Air Room Air Weight Weight: 88.1 kg Body Mass Index (BMI) 26.3 Physical Exam Const alert, oriented x3 and no apparent distress Resp normal respiratory effort Neuro Neuro Narrative: Awake, alert oriented X3 CN 2-12 intact Motor 5/5 in all extremities Sensation: Intact No ataxia Lab / Micro Data 01/31/25 06:15 01/31/25 06:15 Labs: Laboratory Results - last 24 hr 01/30/25 12:55: PT 14.3, INR 1.1, APTT 32.3, Sodium 133, Potassium 4.0, Chloride 99, Carbon Dioxide 24.0, Anion Gap 9, BUN 13, Creatinine 0.87, Estim Creat Clear Calc 85.02, Est GFR (MDRD) Non-Af 89, BUN/Creatinine Ratio 15.0, Glucose 268 H, Calcium 9.0, Troponin T High Sens 16 01/30/25 15:00: Troponin T Hi Sens 2 Hr 18 01/30/25 16:40: Troponin T Hi Sens 4Hr 15 01/30/25 17:19: POC Glucose 221 H 01/30/25 22:16: POC Glucose 218 H 01/31/25 01:34: Magnesium 1.7 01/31/25 06:14: POC Glucose 204 H 01/31/25 06:15: WBC 5.0, RBC 4.70, Hgb 14.6, Hct 42.2, MCV 89.8, MCH 31.1, MCHC 34.6, RDW Std Deviation 42.9, RDW Coeff of Meliton 13.0, Plt Count 159, MPV 9.9, Immature Gran % (Auto) 0.400, Neut % (Auto) 56.7, Lymph % (Auto) 26.2, [place] % (Auto) 14.1 H, Eos % (Auto) 2.2, Baso % (Auto) 0.4, Absolute Neuts (auto) 2.8, Absolute Lymphs (auto) 1.30, Nucleated RBC % 0, PT 14.0, INR 1.1, Sodium 136, Potassium 3.7, Chloride 102, Carbon Dioxide 20.9 L, Anion Gap 13, BUN 11, Creatinine 0.73, Estim Creat Clear Calc 84.88, Est GFR (MDRD) Non-Af 94, BUN/Creatinine Ratio 15.5, Glucose 221 H, Hemoglobin A1c 9.2 H, Calcium 9.3, Triglycerides 166, Cholesterol 138, LDL Cholesterol, Calc 77, VLDL Cholesterol 33, HDL Cholesterol 28 L, Cholesterol/HDL Ratio 4.91, TSH 1.900 01/31/25 11:31: POC Glucose 317 H Rhythm Strip Rhythm Strip: Sinus Rhythm Rate: 81 Ectopy: None Imaging Radiology Impression Head/Neck CTA 01/30/25 12:45 IMPRESSION: 1. No large vessel occlusion identified. 2. Multifocal stenoses as detailed, up to 60% along the LEFT P2. 3. Additional description as above. Reading Location: [facility] Chest X-Ray 01/30/25 13:10 IMPRESSION: 1. No visible acute cardiopulmonary findings 2. Additional description as above. Reading Location: [id number] Brain MRI 01/30/25 14:38 IMPRESSION: 1. Findings are compatible with punctate acute infarct in the high LEFT posterior frontal lobe. No mass-effect or appreciable hemorrhage. 2. Additional description as above. Findings were discussed by telephone with Adonay Banks RN at 5:03 Pm [facility] on 01/30/2025 by Iglesia Devi. Reading Location: [id number] Carotid Duplex 01/30/25 14:38 Interpretation Summary Mild (<50%) stenosis right extracranial internal carotid. Mild (<50%) stenosis left extracranial internal carotid. Patent and antegrade vertebrals bilaterally. Ordering Physician: Radha Llanes Referring Physician: Columba Liz Performed By: Camila Waite, RVT Echocardiogram 01/30/25 14:38 Interpretation Summary Moderate concentric left ventricular hypertrophy. The left ventricular ejection fraction is 70 %. Stage 1 diastolic dysfunction. The left atrium is mildly enlarged. There is Mild focal posterior mitral annular calcification. Aortic sclerosis, no stenosis. Mild (1+) aortic valve insufficiency. Ordering Physician: Radha Llanes Performed By: Elian Lowry, [facility] Active Medications Active Medications Active Medications: Current Medications Generic Name Dose Route Start Last Admin Trade Name Freq PRN Reason Stop Dose Admin Acetaminophen 650 mg 01/30/25 16:28 Acetaminophen 325 Mg Tablet PO Q6H PRN PRN Pain 1-10 Or Fever >100.7 Albuterol Sulfate 2.5 mg 01/30/25 16:28 Albuterol 2.5 Mg/3 Ml Vial.Neb. INHALATION Q2H PRN PRN SOB &/OR WHEEZING Aspirin 81 mg 01/31/25 08:00 01/31/25 10:51 Aspirin 81 Mg Tab.Chew PO 81 mg BREAKFAST FLORI Administration Atorvastatin Calcium 80 mg 01/30/25 22:00 01/30/25 22:18 Atorvastatin Calcium 80 Mg Tablet PO 80 mg QHS FLORI Administration Carbidopa/Levodopa 1 tablet 01/30/25 22:00 01/31/25 11:35 Carbidopa/Levodopa 25/100 Tablet PO 1 tablet TIDAC FLORI Administration Cholecalciferol 125 mcg 01/31/25 10:00 01/31/25 10:51 Cholecalciferol (Vit D3) 125 Mcg Capsule (5,000 Units) PO 125 mcg DAILY FLORI Administration Citalopram Hydrobromide 40 mg 01/31/25 10:00 01/31/25 10:51 Citalopram 40 Mg Tablet PO 40 mg DAILY FLORI Administration Finasteride 5 mg 01/31/25 10:00 01/31/25 10:51 Finasteride 5 Mg Tablet PO 5 mg DAILY FLORI Administration Glucagon 1 mg 01/30/25 16:28 Glucagon 1 Mg/Ml Syringe IM X1 PRN HYPOGLYCEMIA Protocol Hydralazine HCl 5 mg 01/30/25 16:28 Hydralazine 20 Mg/Ml Vial IV 01/31/25 16:28 Q30M PRN maintain BP parameters with HR <60 Dextrose 250 mls @ 0 mls/hr 01/30/25 16:28 Dextrose 10%-Water IV .Q0M PRN HYPOGLYCEMIA Protocol As Directed Insulin Human Lispro 0 unit 01/30/25 16:28 01/31/25 11:36 Insulin Lispro 100 Unit/Ml Insuln.Pen SC 5 unit ACHS FLORI Administration Protocol Labetalol HCl 10 - 20 mg 01/30/25 16:28 Labetalol 20mg/4ml Syringe IV 01/31/25 16:28 Q10M PRN PRN maintain BP parameters with HR >/=60 Loratadine 10 mg 01/31/25 10:00 01/31/25 10:51 Loratadine 10 Mg Tablet PO 10 mg DAILY FLORI Administration Melatonin 3 mg 01/30/25 22:00 01/30/25 22:18 Melatonin 3 Mg Tablet PO 3 mg QHS FLORI Administration Multivitamins 1 tablet 02/01/25 08:00 Multivitamins,Therapeutic Tablet PO DAILYCM FLORI Naakb-[id number] Ethyl Esters 1 gm 01/31/25 10:00 01/31/25 10:51 [place]-3 Acid Ethyl Esters 1 Gm Capsule PO 1 gm DAILY FLORI Administration Pantoprazole Sodium 40 mg 01/31/25 10:00 01/31/25 10:51 Pantoprazole Sodium 40 Mg Tablet PO 40 mg DAILY FLORI Administration Potassium Chloride 20 meq 01/31/25 08:00 01/31/25 10:51 Potassium Chloride Oral Tablet 20 Meq PO 20 meq DAILYCM FLORI Administration Senna/Docusate Sodium 2 tablet 01/30/25 16:28 Senna/Docusate Sodium 1 Tablet PO BID PRN PRN Constipation Sodium Chloride 10 - 40 ml 01/30/25 16:42 01/30/25 22:19 0.9% Saline Lock 10 Ml Syringe IV 10 ml UD PRN Administration SALINE FLUSH Sucralfate 1 gm 01/31/25 08:32 01/31/25 10:51 Sucralfate 1 Gm Tablet PO 1 gm BID PRN Administration GI Tamsulosin HCl 0.4 mg 01/30/25 22:00 01/30/25 22:18 Tamsulosin Hcl 0.4 Mg Capsule PO 0.4 mg QHS FLORI Administration NIHSS NIHSS Nursing Documentation NIHSS Nursing Documentation: NIHSS: Ischemic Stroke/TIA Start: 01/30/25 16:28 Text: For PCU Patients: NIH and Neuro Check every 4 Status: Active hours, PRN and with change in RN caregiver. Freq: [id number] Protocol: Activity Type Activity Date Activity User E-sign Co-sign Detail Recorded Client Recorded Date Recorded By Document 01/31/25 10:00 [email or web address] [id number] 01/31/25 10:13 SHEYLA 01/31/25 10:00 NIH Stroke Scale [NIHSS] A score of 0 is normal or asymptomatic . Total possible score is 42. Inpatient: RN or Physician to activate a stroke alert for onset of new stroke symptoms or with NIHSS increase >/= 3 points. Following change in neurological status, NIHSS will be performed per physician order or more frequently PRN. -1a. Level of Consciousness 0 - Alert; keenly responsive -1b. LOC Questions 0 - Answers BOTH questions correctly -1c. LOC Commands 0 - Performs BOTH tasks correctly -2. Best Gaze 0 - Normal -3. Visual 0 - No visual loss -4. Facial Palsy 0 - Normal symmetrical movements -5a. Left Arm 0 - No drift; arm holds 90 ( or 45) degrees for full 10 seconds -5b. Right Arm 0 - No drift; arm holds 90 ( or 45) degrees for full 10 seconds -6a. Left Leg 0 - No drift; leg holds 30- degree position for full 5 seconds -6b. Right Leg 0 - No drift; leg holds 30- degree position for full 5 seconds -8. Sensory 0 - Normal; no sensory loss -9. Best Language 0 - No aphasia; normal -10. Dysarthria 0 - Normal -11. Extinction and Inattention 0 - No abnormality -Total 0 Query Text:A score of 0 is normal or asymptomatic. Total possible score is 42 . ED: Notify Physician for NIHSS increase by > / = 3 points. Inpatient: RN or Physician to activate a stroke alert for NIHSS increase of > / = 3 points. Coma Scale [Assess] -Eye Opening Spontaneous -Motor Obeys Commands -Verbal Oriented [Total] -Coma Scale Total 15 NIHSS 1a. Level of Consciousness: 0 - Alert; keenly responsive 1b. LOC Questions: 0 - Answers BOTH questions correctly 1c. LOC Commands: 0 - Performs BOTH tasks correctly 2. Best Gaze: 0 - Normal 3. Visual: 0 - No visual loss 4. Facial Palsy: 0 - Normal symmetrical movements 5a. Left Arm: 0 - No drift; arm holds 90 (or 45) degrees for full 10 seconds 5b. Right Arm: 0 - No drift; arm holds 90 (or 45) degrees for full 10 seconds 6a. Left Le - No drift; leg holds 30-degree position for full 5 seconds 6b. Right Le - No drift; leg holds 30-degree position for full 5 seconds 7. Limb Ataxia: 0 - Absent 8. Sensory: 0 - Normal; no sensory loss 9. Best Language: 0 - No aphasia; normal 10. Dysarthria: 0 - Normal 11. Extinction and Inattention: 0 - No abnormality Total: 0
[2025-01-31 14:00] VITALS: BP 142/88; PULSE 88; RESP 18; TEMP 36.7; O2SAT 94
--- NOTE | 2025-01-31 15:04 | CASEMGMT ---
Social Work- SW met with pt to complete PHQ9. SW introduced self and role; pt agreeable to meeting. Pt reports that he has been working up to 5 days a week. 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 Pt scored 0/9 on PHQ9. Pt reports no needs at tis time. DIONNE Alvarez
--- NOTE | 2025-01-31 16:14 | PCM.DC.SUM ---
Providers Date of Admission: 01/30/25 Date of Discharge: 01/31/25 Primary Care Physician: NANCI Dale Consultations 01/30/25 16:28 Consult: Tele-Neurology Routine Consulting Provider: [facility] Reason for Consult: Acute Ischemic Stroke/TIA EMERGENT Consult: No MD Notified: Yes Date Notified: 01/30/25 Time Notified: 16:34 Method of Notification: [facility]sw[facility] Service Nursing Unit Staff Notify [facility] of Tele-Neurology Consult: Yes Reason For Visit: STROKE Diagnosis Discharge Diagnosis (1) Neurologic abnormality: Status: Acute Code(s): R29.818 - Other symptoms and signs involving the nervous system Medications at Discharge Home Medications aspirin 81 mg chewable tablet 81 mg PO DAILY@0800 heart health 11/04/14 atorvastatin 80 mg tablet 80 mg PO QHS cholesterol 11/04/14 metformin 500 mg tablet 1,000 mg PO BIDCM diabetes 11/04/14 omega 3-dha 60 mg-epa 90 mg-fish oil 500 mg capsule, delayed release (Fish Oil) 1,000 mg PO DAILY supplement 11/04/14 potassium chloride 10 mEq tablet,extended release(part/cryst) (Klor-Con M) 20 meq PO DAILY supplement 11/04/14 multivitamin with folic acid 400 mcg tablet (Thera) 1 tab PO DAILY vitamin 10/08/15 cholecalciferol (vitamin D3) 125 mcg (5,000 unit) capsule 125 mcg PO DAILY vitamin 09/07/21 loratadine 10 mg tablet 10 mg PO DAILY PRN allergies 09/07/21 omeprazole 40 mg capsule,delayed release 40 mg PO DAILY reflux 09/07/21 sucralfate 1 gram tablet 1 g PO BID PRN GI 09/07/21 tamsulosin 0.4 mg capsule 0.4 mg PO QHS prostate 09/07/21 atenolol 50 mg tablet 50 mg PO DAILY 06/01/22 Held on 01/31/25. Instructions: Resume on 02/03/25. citalopram 20 mg tablet 40 mg PO DAILY mental health 12/06/22 melatonin 3 mg tablet 3 mg PO QHS sleep 12/06/22 Disability placard #1 ea 04/07/23 carbidopa 25 mg-levodopa 100 mg tablet 1 tab PO TID parkinsons #90 tabs 10/09/24 finasteride 5 mg tablet 5 mg PO DAILY prostate 01/30/25 glimepiride 2 mg tablet 4 mg PO BID diabetes 01/30/25 losartan 25 mg tablet 25 mg PO QHS 01/30/25 Held on 01/31/25. Instructions: Resume on 02/03/25. semaglutide 0.25 mg or 0.5 mg (2 mg/3 mL) subcutaneous pen injector (Ozempic) 0.5 mg subcut QWEEK diabetes 01/30/25 Hospital Course Operations None Procedures 2-D Echocardiogram, EKG and - (CT Brain/CTA Head and Neck/CXR/BRAIN MRI/Carotid Duplex) Summary of Care Provided Minutes Spent on Discharge: 31 Hospital Course: Mr. Mayer is a 79 yo WM who presented to the ED at [facility] on 01/30/2025 2/2 R arm numbness and weakness. NIH 2 at max but quickly resolved and was 0 at the time of admission and throughout his stay. Symptoms started at about 10 AM and he had them on and off until noon. Patient reported he was in bed when the symptoms first started. He had 2 episodes in the past year that were similar but had resolved within 10 minutes. Given the persistent symptoms he was having with this episode he presented to the emergency department for evaluation. Vital signs on presentation showed temperature of 98, heart rate was 83, blood pressure was 141/80 and pulse ox was 97% on room air. His CBC was unremarkable. Coags were normal. Chemistry panel was unremarkable. His glucose was elevated at 221 and his hemoglobin A1c was 9.2. Cholesterol showed a total cholesterol of 138 with an LDL of 77 and HDL of 28. He is already maximized on atorvastatin 80 mg. He was taking aspirin at the time of admission as well. CT of the brain showed no acute findings. CTA of the head and neck showed no LVO's and multifocal stenosis up to 60% along the left P2 carotids were less than 50% bilaterally. He was admitted and stroke workup was pursued further with brain MRI, carotid duplex as requested by neurology, and echocardiogram. MRI of the brain was performed on the day of admission and showed findings compatible with punctate acute infarct in the high left posterior frontal lobe with no mass effect or hemorrhage. Carotid duplex with less than 50% bilateral extracranial ICA stenosis and patent and antegrade vertebral flow bilaterally. Echocardiogram showed moderate concentric LVH with an EF of 70%, stage I diastolic dysfunction, moderate enlargement of the left atrium, aortic valve sclerosis without stenosis and mild aortic valve insufficiency. 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 They recommended ongoing aspirin and high intensity statin. We did hold his antihypertensives to allow for some permissive hypertension until Tuesday at which time he is supposed to restart his home antihypertensives. He is already maximized on atorvastatin and his LDL is close to goal. His diabetes is not well-controlled. We did discuss diet and have asked him to follow-up with his primary care physician as well as neurology. The patient was able to be discharged home in stable condition. No deficits were present at the time of discharge. Again his losartan and atenolol were held at the time of discharge to allow for permissive hypertension. Overall goal for him will ultimately be less than 130/80 and have asked him to follow-up with his primary care physician for further evaluation. He already sees Dr. Arellano so he will follow-up with him for ongoing neurology management. He sees him for Parkinson's disease at baseline. Given the cryptogenic nature of his stroke and event monitor was prescribed at discharge to evaluate for undiagnosed paroxysmal atrial fibrillation. Discharge diagnoses: Acute left MCA stroke Cerebrovascular disease Essential hypertension Hyperlipidemia Uncontrolled DM-2 GERD BPH with obstruction Seasonal allergies Parkinson's disease Hemiballism Erectile dysfunction Depression Physical Exam Const alert, oriented x3, no apparent distress, average body habitus, no limitations and well nourished Constitutional Narrative: Very pleasant, older male, sitting up in bed, appears comfortable, multiple friends and family members at bedside, nontoxic General Appearance: cooperative, comfortable and well developed Nutritional Appearance: overweight HEENT normocephalic, head/scalp atraumatic, hearing grossly normal bilaterally and moist oral mucous membranes HEENT Narrative: Mallampati 2, no thrush Resp normal respiratory effort, no retractions, no use of accessory muscles and clear to auscultation bilaterally Auscultation: Negative for rales, rhonchi or wheezes Cardio regular rate, regular rhythm, S1 normal heart sound, S2 normal heart sound, no murmurs, no rub, no gallops and no clicks GI normal to inspection, nondistended, normoactive bowel sounds, soft to palpation and non-tender Extremity no clubbing, cyanosis or edema Neuro oriented x3, CN's II-XII intact bilaterally, moves all extremities, no focal motor deficits and no sensory deficits noted Speech: speech normal Psych affect normal Psych Narrative: Very pleasant, jovial, interacts appropriately Weight / BMI Weight Weight: 88.1 kg Body Mass Index (BMI) 26.3 ABG / Lab / Microbiology Data 01/31/25 06:15 01/31/25 06:15 Laboratory: Laboratory Results - last 24 hr 01/30/25 17:19: POC Glucose 221 H 01/30/25 22:16: POC Glucose 218 H 01/31/25 01:34: Magnesium 1.7 01/31/25 06:14: POC Glucose 204 H 01/31/25 06:15: WBC 5.0, RBC 4.70, Hgb 14.6, Hct 42.2, MCV 89.8, MCH 31.1, MCHC 34.6, RDW Std Deviation 42.9, RDW Coeff of Meliton 13.0, Plt Count 159, MPV 9.9, Immature Gran % (Auto) 0.400, Neut % (Auto) 56.7, Lymph % (Auto) 26.2, Caldwell % (Auto) 14.1 H, Eos % (Auto) 2.2, Baso % (Auto) 0.4, Absolute Neuts (auto) 2.8, Absolute Lymphs (auto) 1.30, Nucleated RBC % 0, PT 14.0, INR 1.1, Sodium 136, Potassium 3.7, Chloride 102, Carbon Dioxide 20.9 L, Anion Gap 13, BUN 11, Creatinine 0.73, Estim Creat Clear Calc 84.88, Est GFR (MDRD) Non-Af 94, BUN/Creatinine Ratio 15.5, Glucose 221 H, Hemoglobin A1c 9.2 H, Calcium 9.3, Triglycerides 166, Cholesterol 138, LDL Cholesterol, Calc 77, VLDL Cholesterol 33, HDL Cholesterol 28 L, Cholesterol/HDL Ratio 4.91, TSH 1.900 01/31/25 11:31: POC Glucose 317 H 01/31/25 16:11: POC Glucose 233 H Radiography Diagnostic Testing: Radiology Impression Brain MRI 01/30/25 14:38 IMPRESSION: 1. Findings are compatible with punctate acute infarct in the high LEFT posterior frontal lobe. No mass-effect or appreciable hemorrhage. 2. Additional description as above. Findings were discussed by telephone with Adonay Banks RN at 5:03 Pm [facility] on 01/30/2025 by Iglesia Devi. Reading Location: [facility] Carotid Duplex 01/30/25 14:38 Interpretation Summary Mild (<50%) stenosis right extracranial internal carotid. Mild (<50%) stenosis left extracranial internal carotid. Patent and antegrade vertebrals bilaterally. Ordering Physician: Radha Llanes Referring Physician: Columba Liz Performed By: Camila Waite RVT Echocardiogram 01/30/25 14:38 Interpretation Summary Moderate concentric left ventricular hypertrophy. The left ventricular ejection fraction is 70 %. Stage 1 diastolic dysfunction. The left atrium is mildly enlarged. There is Mild focal posterior mitral annular calcification. Aortic sclerosis, no stenosis. Mild (1+) aortic valve insufficiency. Ordering Physician: Radha Llanes Performed By: Elian Lowry, TREVON D/C Instructions Discharge Diet: Low fat / Low cholesterol and 1800 Calorie Control Diet Discharge Activity: Return to Normal Activity DC O2, CPAP, BIPAP Needs Home O2 Discharge instructions: No Meaningful Use Info Meaningful Use Meaningful Use Diagnoses (Choose all that apply): Ischemic CVA CVA Therapy Assessed for PT,OT and/or ST?: Yes Ischemic Stroke Antithrombotic order at d/c?: Yes Dx of Atrial fib/flutter?: No Anticoagulant at discharge?: No Reason anticoagulant not ordered: Treatment not Indicated Statin Dosing Therapy Reference: STATIN DOSE THERAPY REFERENCE: * Patients > 75 years receive moderate or high dose statin therapy. * Patients 75 years or YOUNGER should receive HIGH intensity statin dose unless contraindicated. You will be required to document reason for non-treatment if statin daily dose does not meet guidelines. HIGH DOSE STATIN THERAPY DAILY Atorvastatin > than or = to 40 mg Rosuvastatin > than or = to 20 mg Amlodipine + Atorvastatin > than or = to 2.5/40 mg Ezetimibe + Simvastatin 10/80 mg Simvastatin 80mg Statins at discharge?: Yes Primary Dx Acute Ischemic CVA?: Yes IV thrombolytic ordered during stay?: Yes Reason IV thrombolytic not ordered: Treatment not Indicated Discharge Plan Admission Admit Date/Time: 01/30/25 14:24 Primary Reason for Your Visit: Eddie sheth Attending Provider: Darling Martino Primary Care Provider: Columba Liz Consulting Providers: Gustavo Max; Mi Frost; Daniela Andrews; Angella Norris; Whitney Delgado; Rafiq Fermin; Vesna Lopez; Ayaz Hutchinson; Domenic Lord; Roque Shen; Ruthie Viera; Willis Marcelino; Aubree Guevara; Jemal Wilder; Regina Hussein; Carmelo Mahmood; Tasneem Guadalupe; Sridhar Dupree; Katarina Martino; Florencia Sandoval; Radha Llanes Discharge Orders/Prescriptions Prescriptions: Continued tamsulosin 0.4 mg capsule 0.4 mg PO QHS omeprazole 40 mg capsule,delayed release(DR/EC) 40 mg PO DAILY sucralfate 1 gram tablet 1 g PO BID PRN (Reason: GI) loratadine 10 mg tablet 10 mg PO DAILY PRN (Reason: allergies) cholecalciferol (vitamin D3) 125 mcg (5,000 unit) capsule 125 mcg PO DAILY citalopram 20 mg tablet 40 mg PO DAILY (DME) Disability placard See Rx Instructions .Route .MEDSUPPLY Qty: 1 0RF Rx Instructions: Expiration: 04/07/2026 carbidopa-levodopa 25-100 mg tablet 1 tab PO TID Qty: 90 10RF metformin 500 MG tablet 1,000 mg PO BIDCM atorvastatin 80 MG tablet 80 mg PO QHS aspirin 81 MG tablet,chewable 81 mg PO DAILY@0800 potassium chloride [Klor-Con M10] 10 MEQ tablet,ER particles/crystals 20 meq PO DAILY Fish Oil 500 MG capsule,delayed release(DR/EC) 1,000 mg PO DAILY melatonin 3 mg tablet 3 mg PO QHS multivitamin with folic acid [Thera] 1 TABLET tablet 1 tab PO DAILY Ozempic 0.25 mg or 0.5 mg (2 mg/3 mL) pen injector 0.5 mg subcut QWEEK Patient Comments: every Tuesday glimepiride 2 mg tablet 4 mg PO BID finasteride 5 mg tablet 5 mg PO DAILY Held atenolol 50 mg tablet 50 mg PO DAILY Hold Instructions: Resume on 02/03/25. losartan 25 mg tablet 25 mg PO QHS Hold Instructions: Resume on 02/03/25. Other Ambulatory Orders: 30 Day Event Recorder Preventi (Urgent) Timeframe: 1 Day Facility: [facility] - Location: Cardiovascular Services Ordered By: Dr. Darling Martino Referrals / Follow Up: Ham Arellano MD [Non-Staff -Ordering Privileges] - Within 1 Month Columba Liz NP-C [Primary Care Provider] - Within 1 Week Disposition Disposition (needs filled in before D/C Order can be placed): Home, Self Care Charges/Coding Visit Charges Inpatient E&M: 96898 Disch Hosp
--- NOTE | 2025-01-31 16:31 | CASEMGMT ---
RN DEBRA NOTE: Discharge order is in. Reviewed ST, PT, and OT evals/recommendations. ST and PT both recommend additional therapy. RN CM to room. Pt resting in bed, @ bedside. Introduced self and role. Pt states he is glad to be going home. Made aware of ST and PT recommendations. Pt states he has went to [facility] in the past for OP therapy. He is not sure if he wants to do this again, but states, I'll think about it. Pt provided w/OP script for PT and ST & he is aware he can take to any location of choice if he does decide to go. He states if he does go, he would go to [facility] again. Pt and deny having any further concerns w/pt going home & deny needs. will take pt home. Piyush BARRIOS RN CM
[2025-01-31 16:33] VITALS: BP 142/88; PULSE 88; RESP 18; TEMP 36.7; O2SAT 94
[2025-01-31 16:49] LABS: Bedside Glucose 233 mg/dL (74-106)
== END 2025-01-31 16:22 | disposition home or self-care (01) ==
LOC: ED 13:58 → PCU 14:06
PROVIDERS: Internal Medicine; Admitting Provider Internal Medicine; Emergency Provider Emergency Medicine; PCP Nurse Practitioner Family; Visit Provider Internal Medicine
DX: I63.512 Cerebral infarction due to unspecified occlusion or stenosis of left middle cerebral artery (principal); G20.A1 Parkinson's disease without dyskinesia, without mention of fluctuations; E11.65 Type 2 diabetes mellitus with hyperglycemia; E11.40 Type 2 diabetes mellitus with diabetic neuropathy, unspecified; I35.8 Other nonrheumatic aortic valve disorders; N52.9 Male erectile dysfunction, unspecified; K21.9 Gastro-esophageal reflux disease without esophagitis; F32.A Depression, unspecified; R29.702 NIHSS score 2; E78.5 Hyperlipidemia, unspecified; Z79.82 Long term (current) use of aspirin; J30.2 Other seasonal allergic rhinitis; I10 Essential (primary) hypertension; Z83.3 Family history of diabetes mellitus; Z79.84 Long term (current) use of oral hypoglycemic drugs; N40.1 Benign prostatic hyperplasia with lower urinary tract symptoms; N13.8 Other obstructive and reflux uropathy; G25.5 Other chorea; F41.9 Anxiety disorder, unspecified; I65.23 Occlusion and stenosis of bilateral carotid arteries
CPT/HCPCS: 36415; 70450; 70496; 70498; 70551; 71045; 80048; 80061; 82962; 83036; 83735; 84443; 84484; 85025; 85610; 85730; 92523; 93005; 93306; 93880; 94762; 97162; 97166; 97802; 99221; 99285; Q9957; Q9967; A4216; C8929; G0378